=== PATIENT | male | born 1965 | race Caucasian/White ===

== ENCOUNTER 2017-11-10 12:19 | Day surgery (SDC) | payer OTHER ==
[~2017-11-10 12:19] MED LIST: Lactated Ringers 1,000 ML IV SCH; Midazolam 1 MG/ML 2 ML SDV ONE; Propofol 200 MG/20 ML SDV ONE; fentaNYL 100 MCG/2 ML SDV ONE
--- NOTE | 2017-11-10 12:40 | PCM.PREANE ---
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) Gastrointestinal: No Symptoms Neurological: No Symptoms Other: Reports: None, Easy Bleeding (On blood thinners) - Physical Assessment Height: 1.78 m Weight: 97.976 kg ASA Class: 2 Mental Status: Alert & Oriented x3 Airway Class: Mallampati = 3 Dentition: Reports: Normal Dentition Lungs: Clear to Auscultation Cardiovascular: Regular Rate - Allergies Allergies/Adverse Reactions: Allergies Allergy/AdvReac Type Severity Reaction Status Date / Time No Known Allergies Allergy Verified 11/06/17 08:44 - Acknowledgements Anesthesia Type Planned: MAC Pt an Appropriate Candidate for the Planned Anesthesia: Yes Alternatives and Risks of Anesthesia Discussed w Pt/Guardian: Yes Pt/Guardian Understands and Agrees with Anesthesia Plan: Yes PreAnesthesia Questionnaire HEENT History: Reports: Other (See Below) Other HEENT History: wears glasses, TMJ Cardiovascular History: Reports: Blood Clots/VTE/DVT, Other (See Below) Other Cardiovascular History: venal stent placement in left leg Genitourinary History: Reports: None Musculoskeletal History: Reports: Gout Endocrine/Metabolic History: Reports: Obesity/BMI 30+ Hematologic History: Reports: Bleeding Disorder, Other (See Below) Other Hematologic History: Factor V - Past Surgical History Head Surgeries/Procedures: Reports: None GI Surgical History: Reports: Hernia, Inguinal Other GI Surgeries/Procedures: hx inguinal hernia repair Musculoskeletal Surgical History: Reports: Shoulder Surgery Other Musculoskeletal Surgeries/Procedures:: hx rotator cuff repair Dermatological Surgical History: Reports: Other (See Below) - SUBSTANCE USE Smoking Status *Q: Never Smoker Recreational Drug Use History: No - HOME MEDS Home Medications: Home Meds Allopurinol [Zyloprim] 300 mg PO DAILY 11/06/17 [History] Aspirin [[place] Aspirin] 81 mg PO DAILY 11/06/17 [History] Enoxaparin [Lovenox] 1 injection SUBCUT ASDIRECTED 11/06/17 [History] Warfarin Sodium 5 mg PO DAILY 11/06/17 [History] - CURRENT (IN HOUSE) MEDS Current Meds: Current Medications Lactated Ringer's (Ringers, Lactated) 1,000 mls @ 125 mls/hr IV ASDIRECTED FER Discontinued Medications Fentanyl (Sublimaze) Confirm Administered Dose 100 mcg .ROUTE .STK-MED ONE Stop: 11/10/17 08:27 Lidocaine HCl (Xylocaine-Mpf 1%) Confirm Administered Dose 5 ml .ROUTE .STK-MED ONE Stop: 11/10/17 08:28 Midazolam HCl (Versed 1 Mg/Ml) Confirm Administered Dose 2 mg .ROUTE .STK-MED ONE Stop: 11/10/17 08:27 Propofol (Diprivan 20 Ml) Confirm Administered Dose 200 mg .ROUTE .STK-MED ONE Stop: 11/10/17 08:27
[2017-11-10] MEDS ORDERED: Ondansetron 4 MG/2 ML SDV ONE (13:03)
[2017-11-10] MEDS ORDERED: Dexamethasone 4 MG/ML 5 ML MDV ONE (13:03)
[2017-11-10] MEDS ORDERED: Propofol 200 MG/20 ML SDV ONE (13:05)
[2017-11-10] MEDS ORDERED: Lactated Ringers 1,000 ML IV SCH (13:30)
--- NOTE | 2017-11-10 13:30 | PCM.OPNOTE ---
- General Post-Op/Procedure Note Date of Surgery/Procedure: 11/10/17 Operative Procedure(s): Colonoscopy with cecal biopsy Pre Op Diagnosis: Intermittent rectal bleeding. Desire for colorectal cancer screening. Post-Op Diagnosis: Nonspecific cecal colitis Anesthesia Technique: MAC (ASA II) Primary Surgeon: Toni Johnson Condition: Good Free Text/Narrative:: Dictation [id number] CPT CODE 52067
--- NOTE | 2017-11-11 18:19 | OR ---
SURGEON: Toni Johnson M.D. DATE OF PROCEDURE: 11/10/2017 OPERATION PERFORMED: Colonoscopy with cecal biopsy. ANESTHESIA: MAC. ASA CLASSIFICATION: II. PREOPERATIVE DIAGNOSES: 1. Intermittent rectal bleeding. 2. Desire for colorectal cancer screening. POSTOPERATIVE DIAGNOSIS: Nonspecific colitis. DESCRIPTION OF PROCEDURE: The patient was taken to the endoscopy room and positioned on the endoscopy table in the left lateral decubitus position. Time-out was called for appropriate identification of the patient and procedure. Monitored anesthesia care was provided. The colonoscope was inserted into the rectum and advanced with minimal difficulty to the cecum. The cecum does show some nonspecific inflammatory changes. Biopsies of the cecum were obtained. Cecum was identified by internal landmarks and external pressure and presence of the ileocecal valve. The colonoscope was retroflexed in the cecum to visualize the ascending colon from below and then straightened and slowly withdrawn. The ascending colon, hepatic flexure, transverse colon, splenic flexure, descending colon, sigmoid colon, and rectum were very well visualized. No tumors, polyps, diverticula, or angiodysplastic changes were noted anywhere throughout the colon. There was no evidence of inflammatory bowel disease. Once the colonoscope was withdrawn to the rectum, it was retroflexed to visualize the anal orifice from above. Again no tumors or polyps were seen, and there were no acute hemorrhoidal changes. The colonoscope was then straightened, the rectum aspirated, and the colonoscope removed. The patient tolerated the procedure well and was taken to recovery room in stable condition. JAIME / SHIVA /[id number]
== END 2017-11-10 14:25 | disposition home or self-care (01) ==
LOC: MW.SDS 12:19
PROVIDERS: ATTEND Surgery
DX: K52.9 Noninfective gastroenteritis and colitis, unspecified (principal); M10.9 Gout, unspecified; D68.2 Hereditary deficiency of other clotting factors; E66.9 Obesity, unspecified; Z68.31 Body mass index [BMI] 31.0-31.9, adult; Z79.899 Other long term (current) drug therapy; Z79.82 Long term (current) use of aspirin; Z79.01 Long term (current) use of anticoagulants; Z86.718 Personal history of other venous thrombosis and embolism
CPT/HCPCS: 45380; 88305; J1100; J2250; J2405; J3010; J7120; 00810; J2704

== ENCOUNTER 2020-09-11 11:56 | Inpatient (IN) | payer BC, OTHER ==
[2020-09-11] MEDS ORDERED: Sodium Chloride 0.9% 1,000 ML IV ONE (12:26)
--- NOTE | 2020-09-11 12:28 | EDM.PDOC ---
ED HPI GENERAL MEDICAL PROBLEM - General Chief Complaint: Respiratory Problem Stated Complaint: SHORTNESS OF BREATHE Time Seen by Provider: 09/11/20 12:15 Source of Information: Reports: Patient History Limitations: Reports: No Limitations - History of Present Illness INITIAL COMMENTS - FREE TEXT/NARRATIVE: HISTORY AND PHYSICAL: History of present illness: Patient is a 55-year-old male who presents to the emergency room from the respiratory clinic with hypoxia. Patient was diagnosed with COVID-19 on 09/07/2020 due to shortness of breath, decreased appetite, fatigue and cough. He states he actually was feeling somewhat better with his shortness of breath but did have increased fatigue. Upon being reevaluated at the respiratory clinic it was noted that his oxygen saturation was 82% on room air. He is currently on 3 L per nasal cannula and satting at 92%. Patient denies any fever, chills, headache, change in vision, syncope or near syncope. Denies any chest pain, back pain, abdominal pain, nausea, vomiting, diarrhea, constipation or dysuria. Has not noted any blood in urine or stool. He has had decreased oral intake, concerned he may be dehydrated. He does have a history of factor V and previous blood clots, has been on 5mg Coumadin for 17+ years. Review of systems: As per history of present illness and below otherwise all systems reviewed and negative. Past medical history: As per history of present illness and as reviewed below otherwise noncontributory. Surgical history: As per history of present illness and as reviewed below otherwise nonco ntributory. Social history: See social history for further information Family history: As per history of present illness and as reviewed below otherwise noncontributory. Physical exam: General: Well developed and well nourished. Alert and orientated x 3. Nontoxic in appearance and in no acute distress. Vital signs are stable and have been reviewed by me. Nursing notes were reviewed. HEENT: Atraumatic, normocephalic, pupils equal and reactive bilaterally, negative for conjunctival pallor or scleral icterus, mucous membranes dry/tachy, TMs normal bilaterally, throat clear, neck supple, nontender, trachea midline. No drooling or trismus noted. No meningeal signs. No hot potato voice noted. Lungs: Diminished to auscultation, breath sounds equal bilaterally, chest nontender. Normal work of breathing, no accessory muscles used. Heart: S1S2, regular rate and rhythm without overt murmur Abdomen: Soft, nondistended, nontender. Negative for masses or hepatosplenomegaly. Negative for costovertebral tenderness. Skin: Intact, warm, dry. No lesions or rashes noted. Hematologic: No petechiae or purpra. Mucosa appropriate color and normal nail bed color and refill. Extremities: Atraumatic, moves all extremities per self without difficulty or deficits, negative for cords or calf pain. Neurovascular unremarkable. Neuro: Awake, alert, oriented. Cranial nerves II through XII unremarkable. C erebellum unremarkable. Motor and sensory unremarkable throughout. Exam nonfocal. Psychiatric: Mood and affect are appropriate. Normal thought process. Answering questions appropriately. Notes: Regardless of patient being on Coumadin his D-dimer is elevated, a CT chest has been ordered to rule out PE. I have spoken with the patient/caregiver and discussed today's findings, in addition to providing specific details for plan of care. As patient has required oxygen therapy, I feel he needs admission for further care and management. I did consult Dr. Molina/[facility]: CBC, CMP, Troponin, EKG, CXR, Therapeutics: IV fluids, Dexamethasone Impression: COVID-19 Plan: Inpatient admission Definitive disposition and diagnosis as appropriate pending reevaluation and review of above. - Related Data Allergies Allergy/AdvReac Type Severity Reaction Status Date / Time No Known Allergies Allergy Verified 09/11/20 12:16 Home Meds: Home Meds Allopurinol [Zyloprim] 300 mg PO DAILY 11/06/17 [History] Aspirin [Will Aspirin EC] 81 mg PO DAILY 11/06/17 [History] Enoxaparin [Lovenox] 1 injection SUBCUT ASDIRECTED 11/06/17 [History] Warfarin Sodium 5 mg PO DAILY 11/06/17 [History] Past Medical History HEENT History: Reports: Other (See Below) Other HEENT History: wears glasses, TMJ Cardiovascular History: Reports: Blood Clots/VTE/DVT, Other (See Below) Other Cardiovascular History: venal stent placement in left leg Genitourinary History: Reports: None Musculoskeletal History: Reports: Gout Endocrine/Metabolic History: Reports: Obesity/BMI 30+ Hematologic History: Reports: Bleeding Disorder, Other (See Below) Other Hematologic History: Factor V - Past Surgical History Head Surgeries/Procedures: Reports: None GI Surgical History: Reports: Hernia, Inguinal Other GI Surgeries/Procedures: hx inguinal hernia repair Musculoskeletal Surgical History: Reports: Shoulder Surgery Other Musculoskeletal Surgeries/Procedures:: hx rotator cuff repair Dermatological Surgical History: Reports: Other (See Below) Social & Family History - Tobacco Use Tobacco Use Status *Q: Never Tobacco User - Recreational Drug Use Recreational Drug Use: No ED ROS GENERAL - Review of Systems Review Of Systems: Comprehensive ROS is negative, except as noted in HPI. ED EXAM, GENERAL - Physical Exam Exam: See Below (See dictation) Course - Vital Signs Last Recorded V/S: Last Vital Signs Temp 97.1 F 09/11/20 12:13 Pulse 83 09/11/20 12:13 Resp 16 09/11/20 12:13 BP 128/66 09/11/20 12:13 Pulse Ox 85 L 09/11/20 12:13 - Orders/Labs/Meds Orders: Active Orders 24 hr Category Date Time Status Admission Status [Patient Status] [ADT] Stat ADT 09/11/20 14:13 Ordered Antiembolic Devices [RC] PER UNIT ROUTINE Care 09/11/20 15:12 Active EKG Documentation Completion [RC] STAT Care 09/11/20 12:16 Active Oxygen Therapy Adult [Oxygen Therapy] [RC] ASDIRECTED Care 09/11/20 12:16 Active Oxygen Therapy [RC] PRN Care 09/11/20 15:09 Active Up ad Naila [RC] ASDIRECTED Care 09/11/20 15:09 Active VTE/DVT Education [RC] PER UNIT ROUTINE Care 09/11/20 15:09 Active Vital Signs [RC] Q4H Care 09/11/20 15:09 Active Regular Diet [DIET] Diet 09/11/20 Breakfast Active CBC WITH AUTO DIFF [HEME] AM Lab 09/12/20 05:11 Ordered COMPREHENSIVE METABOLIC PN,CMP [CHEM] AM Lab 09/12/20 05:11 Ordered Acetaminophen [TylenoL] Med 09/11/20 15:09 Ordered 650 mg PO Q4H PRN Ondansetron [Zofran ODT] Med 09/11/20 15:09 Ordered 4 mg PO Q4H PRN Ondansetron [Zofran] Med 09/11/20 15:09 Ordered 4 mg IVPUSH Q4H PRN Sodium Chloride 0.9% [Saline Flush] Med 09/11/20 12:16 Active 10 ml FLUSH ASDIRECTED PRN Sodium Chloride 0.9% [Saline Flush] Med 09/11/20 12:16 Active 2.5 ml FLUSH ASDIRECTED PRN Saline Lock Insert [OM.PC] Stat Oth 09/11/20 12:16 Ordered Sequential Compression Device [OM.PC] Per Unit Routine Oth 09/11/20 15:10 Ordered Resuscitation Status Routine Resus Stat 09/11/20 15:09 Ordered Medication Orders Acetaminophen (Tylenol) 650 mg PO Q4H PRN PRN Reason: Pain (Mild 1-3)/fever Ondansetron HCl (Zofran Odt) 4 mg PO Q4H PRN PRN Reason: nausea, able to take PO Ondansetron HCl (Zofran) 4 mg IVPUSH Q4H PRN PRN Reason: Nausea Sodium Chloride (Saline Flush) 10 ml FLUSH ASDIRECTED PRN PRN Reason: Keep Vein Open Sodium Chloride (Saline Flush) 2.5 ml FLUSH ASDIRECTED PRN PRN Reason: Keep Vein Open Labs: Laboratory Tests 09/11/20 09/11/20 09/11/20 Range/Units 13:08 13:08 13:08 WBC 5.74 (4.0-11.0) K/uL RBC 5.53 (4.50-5.90) M/uL Hgb 18.2 H (13.0-17.0) g/dL Hct 52.3 H (38.0-50.0) % MCV 94.6 (80.0-98.0) fL MCH 32.9 H (27.0-32.0) pg MCHC 34.8 (31.0-37.0) g/dL RDW Std Deviation 44.5 (28.0-62.0) fl RDW Coeff of Aristeo 13 (11.0-15.0) % Plt Count 100 L (150-400) K/uL MPV 11.10 (7.40-12.00) fL Neut % (Auto) 78.8 (48.0-80.0) % Lymph % (Auto) 11.8 L (16.0-40.0) % [place] % (Auto) 9.2 (0.0-15.0) % Eos % (Auto) 0.0 (0.0-7.0) % Baso % (Auto) 0.2 (0.0-1.5) % Neut # (Auto) 4.5 (1.4-5.7) K/uL Lymph # (Auto) 0.7 (0.6-2.4) K/uL [place] # (Auto) 0.5 (0.0-0.8) K/uL Eos # (Auto) 0.0 (0.0-0.7) K/uL Baso # (Auto) 0.0 (0.0-0.1) K/uL Nucleated RBC % 0.0 /100WBC Nucleated RBCs # 0 K/uL INR D-Dimer, Quantitative 1.60 H (0.0-0.50) mg/L FEU VBG pH (7.31-7.41) VBG pCO2 (35-45) mmHG VBG pO2 (30-40) mmHG VBG HCO3 (22-30) mEq/L VBG Total CO2 (41-51) mmol/L VBG Base Excess (-3.0-3.0) Lactate (0.20-2.00) mmol/L Sodium 133 L (136-148) mmol/L Potassium 4.1 (3.5-5.1) mmol/L Chloride 98 (98-107) mmol/L Carbon Dioxide 24.1 (21.0-32.0) mmol/L BUN 22 H (7.0-18.0) mg/dL Creatinine 1.1 (0.8-1.3) mg/dL Est Cr Clr Drug Dosing 70.11 mL/min Estimated GFR (MDRD) > 60.0 ml/min Glucose 103 (74-106) mg/dL Calcium 8.6 (8.5-10.1) mg/dL Total Bilirubin 0.7 (0.2-1.0) mg/dL AST 51 H (15-37) IU/L ALT 50 (14-63) IU/L Alkaline Phosphatase 66 (46-116) U/L Troponin I < 0.050 (0.000-0.056) ng/mL Total Protein 7.7 (6.4-8.2) g/dL Albumin 3.2 L (3.4-5.0) g/dL Globulin 4.5 H (2.6-4.0) g/dL Albumin/Globulin Ratio 0.7 L (0.9-1.6) SARS-CoV-2 RNA (ANDREW) (NEGATIVE) 09/11/20 09/11/20 09/11/20 Range/Units 13:08 13:08 13:08 WBC (4.0-11.0) K/uL RBC (4.50-5.90) M/uL Hgb (13.0-17.0) g/dL Hct (38.0-50.0) % MCV (80.0-98.0) fL MCH (27.0-32.0) pg MCHC (31.0-37.0) g/dL RDW Std Deviation (28.0-62.0) fl RDW Coeff of Aristeo (11.0-15.0) % Plt Count (150-400) K/uL MPV (7.40-12.00) fL Neut % (Auto) (48.0-80.0) % Lymph % (Auto) (16.0-40.0) % [place] % (Auto) (0.0-15.0) % Eos % (Auto) (0.0-7.0) % Baso % (Auto) (0.0-1.5) % Neut # (Auto) (1.4-5.7) K/uL Lymph # (Auto) (0.6-2.4) K/uL [place] # (Auto) (0.0-0.8) K/uL Eos # (Auto) (0.0-0.7) K/uL Baso # (Auto) (0.0-0.1) K/uL Nucleated RBC % /100WBC Nucleated RBCs # K/uL INR 2.11 D-Dimer, Quantitative (0.0-0.50) mg/L FEU VBG pH 7.45 H (7.31-7.41) VBG pCO2 36 (35-45) mmHG VBG pO2 44 H (30-40) mmHG VBG HCO3 25 (22-30) mEq/L VBG Total CO2 21 L (41-51) mmol/L VBG Base Excess 0.9 (-3.0-3.0) Lactate 1.3 (0.20-2.00) mmol/L Sodium (136-148) mmol/L Potassium (3.5-5.1) mmol/L Chloride (98-107) mmol/L Carbon Dioxide (21.0-32.0) mmol/L BUN (7.0-18.0) mg/dL Creatinine (0.8-1.3) mg/dL Est Cr Clr Drug Dosing mL/min Estimated GFR (MDRD) ml/min Glucose (74-106) mg/dL Calcium (8.5-10.1) mg/dL Total Bilirubin (0.2-1.0) mg/dL AST (15-37) IU/L ALT (14-63) IU/L Alkaline Phosphatase (46-116) U/L Troponin I (0.000-0.056) ng/mL Total Protein (6.4-8.2) g/dL Albumin (3.4-5.0) g/dL Globulin (2.6-4.0) g/dL Albumin/Globulin Ratio (0.9-1.6) SARS-CoV-2 RNA (ANDREW) (NEGATIVE) 09/11/20 Range/Units 13:08 WBC (4.0-11.0) K/uL RBC (4.50-5.90) M/uL Hgb (13.0-17.0) g/dL Hct (38.0-50.0) % MCV (80.0-98.0) fL MCH (27.0-32.0) pg MCHC (31.0-37.0) g/dL RDW Std Deviation (28.0-62.0) fl RDW Coeff of Aristeo (11.0-15.0) % Plt Count (150-400) K/uL MPV (7.40-12.00) fL Neut % (Auto) (48.0-80.0) % Lymph % (Auto) (16.0-40.0) % [place] % (Auto) (0.0-15.0) % Eos % (Auto) (0.0-7.0) % Baso % (Auto) (0.0-1.5) % Neut # (Auto) (1.4-5.7) K/uL Lymph # (Auto) (0.6-2.4) K/uL [place] # (Auto) (0.0-0.8) K/uL Eos # (Auto) (0.0-0.7) K/uL Baso # (Auto) (0.0-0.1) K/uL Nucleated RBC % /100WBC Nucleated RBCs # K/uL INR D-Dimer, Quantitative (0.0-0.50) mg/L FEU VBG pH (7.31-7.41) VBG pCO2 (35-45) mmHG VBG pO2 (30-40) mmHG VBG HCO3 (22-30) mEq/L VBG Total CO2 (41-51) mmol/L VBG Base Excess (-3.0-3.0) Lactate (0.20-2.00) mmol/L Sodium (136-148) mmol/L Potassium (3.5-5.1) mmol/L Chloride (98-107) mmol/L Carbon Dioxide (21.0-32.0) mmol/L BUN (7.0-18.0) mg/dL Creatinine (0.8-1.3) mg/dL Est Cr Clr Drug Dosing mL/min Estimated GFR (MDRD) ml/min Glucose (74-106) mg/dL Calcium (8.5-10.1) mg/dL Total Bilirubin (0.2-1.0) mg/dL AST (15-37) IU/L ALT (14-63) IU/L Alkaline Phosphatase (46-116) U/L Troponin I (0.000-0.056) ng/mL Total Protein (6.4-8.2) g/dL Albumin (3.4-5.0) g/dL Globulin (2.6-4.0) g/dL Albumin/Globulin Ratio (0.9-1.6) SARS-CoV-2 RNA (ANDREW) POSITIVE H (NEGATIVE) Meds: Medications Generic Name Dose Route Start Last Admin Trade Name Freq PRN Reason Stop Dose Admin Acetaminophen 650 mg 09/11/20 15:09 Tylenol PO Q4H PRN Pain (Mild 1-3)/fever Ondansetron HCl 4 mg 09/11/20 15:09 Zofran Odt PO Q4H PRN nausea, able to take PO Ondansetron HCl 4 mg 09/11/20 15:09 Zofran IVPUSH Q4H PRN Nausea Sodium Chloride 10 ml 09/11/20 12:16 Saline Flush FLUSH ASDIRECTED PRN Keep Vein Open Sodium Chloride 2.5 ml 09/11/20 12:16 Saline Flush FLUSH ASDIRECTED PRN Keep Vein Open Discontinued Medications Generic Name Dose Route Start Last Admin Trade Name Freq PRN Reason Stop Dose Admin Dexamethasone 6 mg 09/11/20 12:37 09/11/20 13:53 Dexamethasone PO 09/11/20 12:38 6 mg ONETIME ONE Administration Sodium Chloride 1,000 mls @ 999 mls/hr 09/11/20 12:26 09/11/20 13:14 Normal Saline IV 09/11/20 13:26 999 mls/hr STAT ONE Administration Iopamidol 75 ml 09/11/20 14:47 09/11/20 14:48 Isovue Multipack-370 (76%) IVPUSH 09/11/20 14:48 75 ml ONETIME STA Administration Departure - Departure Time of Disposition: 15:24 Disposition: Admitted As Inpatient 65 Clinical Impression: COVID-19 - Discharge Information Referrals: Marco House MD [Ordering Only Provider] - Critical Care Note - Critical Care Note Total Time (mins): 31 Comments: Critical care time is exclusive of billable procedures and the time to perform these procedures. Critical care time was used to prevent vital system organ failure and deterioration. Critical care time includes bedside management and high-complexity decision making requiring my highest level of mental preparedness and attention. This includes reviewing the patient's chart and prior medical records, ordering and reviewing interpreting laboratory studies and imaging results, interpretation of vital signs and EKG, pulse oximetry, and discussion with the admitting team along with EMS and nursing staff. 31 minutes for applying oxygen, monitoring vital signs frequently, dexamethasone administration. Sepsis Event Note (ED) - Evaluation Sepsis Screening Result: No Definite Risk - Focused Exam Vital Signs: Vital Signs Temp Pulse Resp BP Pulse Ox 09/11/20 12:13 97.1 F 83 16 128/66 85 L - My Orders Last 24 Hours: My Active Orders 09/11/20 12:16 EKG Documentation Completion [RC] STAT Oxygen Therapy Adult [Oxygen Therapy] [RC] ASDIRECTED Sodium Chloride 0.9% [Saline Flush] 10 ml FLUSH ASDIRECTED PRN Sodium Chloride 0.9% [Saline Flush] 2.5 ml FLUSH ASDIRECTED PRN Saline Lock Insert [OM.PC] Stat 09/11/20 14:13 Admission Status [Patient Status] [ADT] Stat - Assessment/Plan Last 24 Hours: My Active Orders 09/11/20 12:16 EKG Documentation Completion [RC] STAT Oxygen Therapy Adult [Oxygen Therapy] [RC] ASDIRECTED Sodium Chloride 0.9% [Saline Flush] 10 ml FLUSH ASDIRECTED PRN Sodium Chloride 0.9% [Saline Flush] 2.5 ml FLUSH ASDIRECTED PRN Saline Lock Insert [OM.PC] Stat 09/11/20 14:13 Admission Status [Patient Status] [ADT] Stat
[2020-09-11] MEDS ORDERED: Dexamethasone 4 MG Tab PO ONE (12:37)
--- NOTE | 2020-09-11 12:52 | CR ---
INDICATION: Hypoxia. COVID-19 positive. COMPARISON: None TECHNIQUE: Single-view chest radiograph obtained is an AP upright portable study. FINDINGS: TUBES AND LINES: None. HEART AND MEDIASTINUM: The heart size is normal. The mediastinal contour appears normal for patient age. LUNGS AND PLEURAL SPACES: Lung volumes are low. There is moderate diffuse multifocal airspace disease.No visible pleural effusion or pneumothorax. OSSEOUS STRUCTURES: Age-appropriate appearance. No acute focal finding. IMPRESSION: Moderate diffuse multifocal airspace disease. No visible pleural effusion or pneumothorax. While nonspecific, the findings are compatible with COVID related lung disease. Dictated by Joseph Ferrari MD @ Sep 11 2020 12:50PM Signed by Dr. Joseph Ferrari @ Sep 11 2020 12:51PM
[2020-09-11 13:55] LABS: BLOOD UREA NITROGEN,BUN 22 mg/dL (7.0-18.0); CARBON DIOXIDE,CO2 24.1 mmol/L (21.0-32.0); CHLORIDE,CL 98 mmol/L (98-107); GLUCOSE RANDOM 103 mg/dL (74-106); POTASSIUM,K 4.1 mmol/L (3.5-5.1); SODIUM,NA 133 mmol/L (136-148)
[2020-09-11] MEDS ORDERED: Iopamidol 755 MG/ML 500 ML Multipack Bottle IVPUSH STA (14:47)
[2020-09-11] MEDS ORDERED: Ondansetron 4 MG Tab.DIS PO PRN (15:09)
[2020-09-11] MEDS ORDERED: Ondansetron 4 MG/2 ML SDV IVPUSH PRN (15:09)
--- NOTE | 2020-09-11 15:16 | CT ---
INDICATION: Shortness of breath, elevated D-dimer, positive COVID. COMPARISON: Chest radiograph 09/11/2020. TECHNIQUE: CT of the chest with 75 cc of Isovue 370 IV contrast. Coronal and sagittal reconstructions. 3D post processing was performed. FINDINGS: Heart size upper limits of normal. Normal caliber thoracic aorta and central pulmonary arteries. Mild coronary artery calcifications. Negative for acute pulmonary embolism. No pericardial effusion. No thoracic lymphadenopathy. There are relatively symmetric peripheral and basilar predominant patchy consolidations and ground-glass opacities bilaterally which are likely infectious or inflammatory (series 402 image 56). No pleural effusion or pneumothorax. 8 mm noncalcified pulmonary nodule along the right major fissure (image 51). 3 mm nodule along the right major fissure (image 45). 5 mm noncalcified pleural-based pulmonary nodule in the anterior right middle lobe (image 58). No central endobronchial lesion. Marked bronchial wall thickening in the lower lungs. The thyroid gland is normal in appearance. Small hiatal hernia. Diffuse hepatic steatosis. The remainder of the visualized upper abdomen is unremarkable. The bones are unremarkable. IMPRESSION: 1. Negative for acute pulmonary embolism. 2. There are peripheral and basilar predominant patchy consolidations and ground-glass opacities which are likely infectious or inflammatory and can be seen in the setting of COVID pneumonia. 3. Few noncalcified pulmonary nodules in the right lung measuring up to 8 mm. Please see follow-up guidelines below. 4. Diffuse hepatic steatosis. [employer] GUIDELINES - SOLID NODULES: MULTIPLE LOW RISK - nodule less than 6 mm: No routine follow-up. - nodule 6-8 mm: CT at 3-6 months, then consider CT at 18-24 months. - nodule greater than 8 mm: CT at 3-6 months, then consider CT at 18-24 months. MULTIPLE HIGH RISK - nodule less than 6 mm: Optional CT at 12 months. - nodule 6-8 mm: CT at 3-6 months, then at 18-24 months. - nodule greater than 8 mm: CT at 3-6 months, then at 18-24 months. Please note that all CT scans at this facility use dose modulation, iterative reconstruction, and/or weight-based dosing when appropriate to reduce radiation dose to as low as reasonably achievable. Dictated by Amie Chance MD @ Sep 11 2020 3:00PM Signed by Dr. Amie Chance @ Sep 11 2020 3:14PM
--- NOTE | 2020-09-11 15:20 | PCM.SN.2 ---
- Free Text/Narrative Note: 12 lead EKG interpretation Obtained: September 11, 2020 at 1502 Rhythm: Sinus Rate: 80 [place]: Normal Intervals: Normal ST/T Segments: No acute ischemic changes Interpretation: Sinus Rhythm
--- NOTE | 2020-09-11 15:59 | PCM.HP.2 ---
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 And takes Allopurinol for long standing Gout. He was sent directly from respiratory clinic for hypoxia; O2 sat 82% on r.a secondary to COVID 19. He was previously tested and found to be COVID 19 positive on 09/07/2020. States that since 1 x week he has been experiencing worsening s.o.b, decreased appetite, fatigue, cough. Was feeling mildly improved from a respiratory stand point but had worsening of his fatigue. Also, states he has not been eating or drinking very much in the last week as he has nausea worsened by fried or fatty foods. But denies any change in his sense of taste or smell. 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 States he has never felt like this before, symptoms are alleviated by sitting up and sitting still. Worsened by activity. Has not tried taking anything for it. Denies any associated fever, chills, weight loss, or abdominal pain. Onset of Symptoms: Reports: Gradual Context: Reports: Sick Contact (coworker). Denies: Travel Associated Symptoms: Reports: Cough, Loss of Appetite, Nausea/Vomiting, Shortness of Breath, Weakness. Denies: Chest Pain, Diaphoresis, Fever/Chills, Headaches, Rash, Syncope - Related Data Allergies/Adverse Reactions: Allergies Allergy/AdvReac Type Severity Reaction Status Date / Time No Known Allergies Allergy Verified 09/11/20 15:33 Home Medications: Home Meds Allopurinol [Zyloprim] 300 mg PO DAILY 11/06/17 [History] Aspirin [Cushing Aspirin EC] 81 mg PO DAILY 11/06/17 [History] Warfarin Sodium 5 mg PO DAILY 11/06/17 [History] Past Medical History HEENT History: Reports: Other (See Below) Other HEENT History: wears glasses, TMJ Cardiovascular History: Reports: Blood Clots/VTE/DVT, Other (See Below) Other Cardiovascular History: venal stent placement in left leg Genitourinary History: Reports: None Musculoskeletal History: Reports: Gout Endocrine/Metabolic History: Reports: Obesity/BMI 30+ Hematologic History: Reports: Bleeding Disorder, Other (See Below) Other Hematologic History: Factor V - Past Surgical History Head Surgeries/Procedures: Reports: None GI Surgical History: Reports: Hernia, Inguinal Other GI Surgeries/Procedures: hx inguinal hernia repair Musculoskeletal Surgical History: Reports: Shoulder Surgery Other Musculoskeletal Surgeries/Procedures:: hx rotator cuff repair Dermatological Surgical History: Reports: Other (See Below) Social & Family History - Tobacco Use Tobacco Use Status *Q: Never Tobacco User - Recreational Drug Use Recreational Drug Use: No H&P Review of Systems - Review of Systems: Review Of Systems: Comprehensive ROS is negative, except as noted in HPI. General: Reports: Fatigue, Decreased Appetite HEENT: Reports: No Symptoms, Sore Throat Pulmonary: Reports: Shortness of Breath. Denies: Wheezing, Pleuritic Chest Pain Cardiovascular: Reports: Dyspnea on Exertion. Denies: Chest Pain Gastrointestinal: Reports: Anorexia Musculoskeletal: Reports: No Symptoms Skin: Reports: No Symptoms Psychiatric: Reports: No Symptoms Neurological: Reports: No Symptoms Hematologic/Lymphatic: Reports: No Symptoms Immunologic: Reports: No Symptoms Exam - Exam Exam: See Below - Vital Signs Vital Signs: Last Vital Signs Temp 97.7 F 09/11/20 15:30 Pulse 90 09/11/20 15:30 Resp 20 09/11/20 15:30 BP 141/91 H 09/11/20 15:30 Pulse Ox 92 L 09/11/20 15:30 Weight: 94.03 kg - Exam Quality Assessment: Supplemental Oxygen General: Alert, Oriented, Cooperative, Moderate Distress HEENT: EOMI, Mucosa Moist & [place], Nares Patent, Normal Nasal Septum, Pupils Equal, Pupils Reactive, PERRLA Neck: Supple, Trachea Midline, Full Range of Motion. No: Lymphadenopathy, JVD Lungs: Normal Respiratory Effort, Decreased Breath Sounds, Rhonchi Cardiovascular: Regular Rate, Regular Rhythm, Normal S1, Normal S2 GI/Abdominal Exam: Normal Bowel Sounds, Soft, Non-Tender Back Exam: Normal Inspection, Full Range of Motion Extremities: Normal Inspection, Normal Range of Motion, Normal Capillary Refill Skin: Warm, Dry, Intact Neurological: Cranial Nerves Intact, Reflexes Equal Bilateral, Strength Equal Bilateral Neuro Extensive - Mental Status: Alert, Oriented x3, Normal Mood/Affect, Normal Cognition, Memory Intact Neuro Extensive - Motor, Sensory, Reflexes: CN II-XII Intact Psychiatric: Alert, Normal Affect, Normal Mood - Patient Data Lab Results Last 24 hrs: Laboratory Results - last 24 hr 09/11/20 09/11/20 09/11/20 Range/Units 13:08 13:08 13:08 WBC 5.74 (4.0-11.0) K/uL RBC 5.53 (4.50-5.90) M/uL Hgb 18.2 H (13.0-17.0) g/dL Hct 52.3 H (38.0-50.0) % MCV 94.6 (80.0-98.0) fL MCH 32.9 H (27.0-32.0) pg MCHC 34.8 (31.0-37.0) g/dL RDW Std Deviation 44.5 (28.0-62.0) fl RDW Coeff of Aristeo 13 (11.0-15.0) % Plt Count 100 L (150-400) K/uL MPV 11.10 (7.40-12.00) fL Neut % (Auto) 78.8 (48.0-80.0) % Lymph % (Auto) 11.8 L (16.0-40.0) % [place] % (Auto) 9.2 (0.0-15.0) % Eos % (Auto) 0.0 (0.0-7.0) % Baso % (Auto) 0.2 (0.0-1.5) % Neut # (Auto) 4.5 (1.4-5.7) K/uL Lymph # (Auto) 0.7 (0.6-2.4) K/uL [place] # (Auto) 0.5 (0.0-0.8) K/uL Eos # (Auto) 0.0 (0.0-0.7) K/uL Baso # (Auto) 0.0 (0.0-0.1) K/uL Nucleated RBC % 0.0 /100WBC Nucleated RBCs # 0 K/uL INR D-Dimer, Quantitative 1.60 H (0.0-0.50) mg/L FEU VBG pH (7.31-7.41) VBG pCO2 (35-45) mmHG VBG pO2 (30-40) mmHG VBG HCO3 (22-30) mEq/L VBG Total CO2 (41-51) mmol/L VBG Base Excess (-3.0-3.0) Lactate (0.20-2.00) mmol/L Sodium 133 L (136-148) mmol/L Potassium 4.1 (3.5-5.1) mmol/L Chloride 98 (98-107) mmol/L Carbon Dioxide 24.1 (21.0-32.0) mmol/L BUN 22 H (7.0-18.0) mg/dL Creatinine 1.1 (0.8-1.3) mg/dL Est Cr Clr Drug Dosing 70.11 mL/min Estimated GFR (MDRD) > 60.0 ml/min Glucose 103 (74-106) mg/dL Calcium 8.6 (8.5-10.1) mg/dL Total Bilirubin 0.7 (0.2-1.0) mg/dL AST 51 H (15-37) IU/L ALT 50 (14-63) IU/L Alkaline Phosphatase 66 (46-116) U/L Troponin I < 0.050 (0.000-0.056) ng/mL Total Protein 7.7 (6.4-8.2) g/dL Albumin 3.2 L (3.4-5.0) g/dL Globulin 4.5 H (2.6-4.0) g/dL Albumin/Globulin Ratio 0.7 L (0.9-1.6) SARS-CoV-2 RNA (ANDREW) (NEGATIVE) 09/11/20 09/11/20 09/11/20 Range/Units 13:08 13:08 13:08 WBC (4.0-11.0) K/uL RBC (4.50-5.90) M/uL Hgb (13.0-17.0) g/dL Hct (38.0-50.0) % MCV (80.0-98.0) fL MCH (27.0-32.0) pg MCHC (31.0-37.0) g/dL RDW Std Deviation (28.0-62.0) fl RDW Coeff of Aristeo (11.0-15.0) % Plt Count (150-400) K/uL MPV (7.40-12.00) fL Neut % (Auto) (48.0-80.0) % Lymph % (Auto) (16.0-40.0) % [place] % (Auto) (0.0-15.0) % Eos % (Auto) (0.0-7.0) % Baso % (Auto) (0.0-1.5) % Neut # (Auto) (1.4-5.7) K/uL Lymph # (Auto) (0.6-2.4) K/uL [place] # (Auto) (0.0-0.8) K/uL Eos # (Auto) (0.0-0.7) K/uL Baso # (Auto) (0.0-0.1) K/uL Nucleated RBC % /100WBC Nucleated RBCs # K/uL INR 2.11 D-Dimer, Quantitative (0.0-0.50) mg/L FEU VBG pH 7.45 H (7.31-7.41) VBG pCO2 36 (35-45) mmHG VBG pO2 44 H (30-40) mmHG VBG HCO3 25 (22-30) mEq/L VBG Total CO2 21 L (41-51) mmol/L VBG Base Excess 0.9 (-3.0-3.0) Lactate 1.3 (0.20-2.00) mmol/L Sodium (136-148) mmol/L Potassium (3.5-5.1) mmol/L Chloride (98-107) mmol/L Carbon Dioxide (21.0-32.0) mmol/L BUN (7.0-18.0) mg/dL Creatinine (0.8-1.3) mg/dL Est Cr Clr Drug Dosing mL/min Estimated GFR (MDRD) ml/min Glucose (74-106) mg/dL Calcium (8.5-10.1) mg/dL Total Bilirubin (0.2-1.0) mg/dL AST (15-37) IU/L ALT (14-63) IU/L Alkaline Phosphatase (46-116) U/L Troponin I (0.000-0.056) ng/mL Total Protein (6.4-8.2) g/dL Albumin (3.4-5.0) g/dL Globulin (2.6-4.0) g/dL Albumin/Globulin Ratio (0.9-1.6) SARS-CoV-2 RNA (ANDREW) (NEGATIVE) 09/11/20 Range/Units 13:08 WBC (4.0-11.0) K/uL RBC (4.50-5.90) M/uL Hgb (13.0-17.0) g/dL Hct (38.0-50.0) % MCV (80.0-98.0) fL MCH (27.0-32.0) pg MCHC (31.0-37.0) g/dL RDW Std Deviation (28.0-62.0) fl RDW Coeff of Aristeo (11.0-15.0) % Plt Count (150-400) K/uL MPV (7.40-12.00) fL Neut % (Auto) (48.0-80.0) % Lymph % (Auto) (16.0-40.0) % [place] % (Auto) (0.0-15.0) % Eos % (Auto) (0.0-7.0) % Baso % (Auto) (0.0-1.5) % Neut # (Auto) (1.4-5.7) K/uL Lymph # (Auto) (0.6-2.4) K/uL [place] # (Auto) (0.0-0.8) K/uL Eos # (Auto) (0.0-0.7) K/uL Baso # (Auto) (0.0-0.1) K/uL Nucleated RBC % /100WBC Nucleated RBCs # K/uL INR D-Dimer, Quantitative (0.0-0.50) mg/L FEU VBG pH (7.31-7.41) VBG pCO2 (35-45) mmHG VBG pO2 (30-40) mmHG VBG HCO3 (22-30) mEq/L VBG Total CO2 (41-51) mmol/L VBG Base Excess (-3.0-3.0) Lactate (0.20-2.00) mmol/L Sodium (136-148) mmol/L Potassium (3.5-5.1) mmol/L Chloride (98-107) mmol/L Carbon Dioxide (21.0-32.0) mmol/L BUN (7.0-18.0) mg/dL Creatinine (0.8-1.3) mg/dL Est Cr Clr Drug Dosing mL/min Estimated GFR (MDRD) ml/min Glucose (74-106) mg/dL Calcium (8.5-10.1) mg/dL Total Bilirubin (0.2-1.0) mg/dL AST (15-37) IU/L ALT (14-63) IU/L Alkaline Phosphatase (46-116) U/L Troponin I (0.000-0.056) ng/mL Total Protein (6.4-8.2) g/dL Albumin (3.4-5.0) g/dL Globulin (2.6-4.0) g/dL Albumin/Globulin Ratio (0.9-1.6) SARS-CoV-2 RNA (ANDREW) POSITIVE H (NEGATIVE) Result Diagrams: 09/11/20 13:08 09/11/20 13:08 Sepsis Event Note - Evaluation Sepsis Screening Result: No Definite Risk - Focused Exam Vital Signs: Vital Signs Temp Pulse Resp BP Pulse Ox 09/11/20 15:30 97.7 F 90 20 141/91 H 92 L 09/11/20 14:35 84 133/76 87 L 09/11/20 13:34 79 124/65 91 L 09/11/20 12:13 97.1 F 83 16 128/66 85 L - Problem List (1) Factor 5 Leiden mutation, heterozygous SNOMED Code(s): 621435821 ICD Code: D68.51 - ACTIVATED PROTEIN C RESISTANCE Status: Chronic (2) Pulmonary nodules/lesions, multiple SNOMED Code(s): 939639012 ICD Code: R91.8 - OTHER NONSPECIFIC ABNORMAL FINDING OF LUNG FIELD Status: Chronic (3) Gout SNOMED Code(s): 79720204 ICD Code: M10.9 - GOUT, UNSPECIFIED Status: Chronic (4) Hepatic steatosis SNOMED Code(s): 640233879 ICD Code: K76.0 - FATTY (CHANGE OF) LIVER, NOT ELSEWHERE CLASSIFIED Status: Acute Problem List Initiated/Reviewed/Updated: Yes Orders Last 24hrs: Active Orders 24 hr Category Date Time Status Admission Status [Patient Status] [ADT] Stat ADT 09/11/20 14:13 Active Antiembolic Devices [RC] PER UNIT ROUTINE Care 09/11/20 15:12 Active Communication Order [RC] ROUTINE Care 09/11/20 15:41 Ordered Incentive Spirometry [RT Incentive Spirometry] [RC] Care 09/11/20 15:42 Ordered ASDIRECTED Oxygen Therapy Adult [Oxygen Therapy] [RC] ASDIRECTED Care 09/11/20 12:16 Active Oxygen Therapy [RC] PRN Care 09/11/20 15:09 Active RT Post Treatment Assessment [RC] Click to Edit Care 09/11/20 15:35 Ordered RT Pre-Treatment Assessment [RC] Click to Edit Care 09/11/20 15:35 Ordered Up ad Naila [RC] ASDIRECTED Care 09/11/20 15:09 Active VTE/DVT Education [RC] PER UNIT ROUTINE Care 09/11/20 15:09 Active Vital Signs [RC] Q4H Care 09/11/20 15:09 Active Regular Diet [DIET] Diet 09/11/20 Breakfast Active CBC WITH AUTO DIFF [HEME] AM Lab 09/12/20 05:11 Ordered COMPREHENSIVE METABOLIC PN,CMP [CHEM] AM Lab 09/12/20 05:11 Ordered INR,PT,PROTHROMBIN TIME [COAG] DAILY Lab 09/12/20 05:11 Ordered INR,PT,PROTHROMBIN TIME [COAG] DAILY Lab 09/13/20 05:11 Ordered INR,PT,PROTHROMBIN TIME [COAG] DAILY Lab 09/14/20 05:11 Ordered INR,PT,PROTHROMBIN TIME [COAG] DAILY Lab 09/15/20 05:11 Ordered INR,PT,PROTHROMBIN TIME [COAG] DAILY Lab 09/16/20 05:11 Ordered Acetaminophen [TylenoL] Med 09/11/20 15:09 Ordered 650 mg PO Q4H PRN Albuterol/Ipratropium [Combivent Respimat] Med 09/11/20 15:45 Ordered See Dose Instructions INH Q4H Ondansetron [Zofran ODT] Med 09/11/20 15:09 Ordered 4 mg PO Q4H PRN Ondansetron [Zofran] Med 09/11/20 15:09 Ordered 4 mg IVPUSH Q4H PRN Sodium Chloride 0.9% [Saline Flush] Med 09/11/20 12:16 Active 10 ml FLUSH ASDIRECTED PRN Sodium Chloride 0.9% [Saline Flush] Med 09/11/20 12:16 Active 2.5 ml FLUSH ASDIRECTED PRN Warfarin Dosing [Coumadin Ask] Med 09/11/20 15:45 Once 1 each PO ONETIME ONE dexAMETHasone [Dexamethasone] Med 09/12/20 09:00 Ordered 6 mg IVPUSH DAILY Saline Lock Insert [OM.PC] Stat Oth 09/11/20 12:16 Ordered Sequential Compression Device [OM.PC] Per Unit Routine Oth 09/11/20 15:10 Ordered Resuscitation Status Routine Resus Stat 09/11/20 15:09 Ordered Medication Orders Acetaminophen (Tylenol) 650 mg PO Q4H PRN PRN Reason: Pain (Mild 1-3)/fever Albuterol/Ipratropium (Combivent Respimat) 0 gm INH Q4H FER Dexamethasone (Dexamethasone) 6 mg IVPUSH DAILY FER Ondansetron HCl (Zofran Odt) 4 mg PO Q4H PRN PRN Reason: nausea, able to take PO Ondansetron HCl (Zofran) 4 mg IVPUSH Q4H PRN PRN Reason: Nausea Sodium Chloride (Saline Flush) 10 ml FLUSH ASDIRECTED PRN PRN Reason: Keep Vein Open Sodium Chloride (Saline Flush) 2.5 ml FLUSH ASDIRECTED PRN PRN Reason: Keep Vein Open Warfarin Sodium (Coumadin Ask) 1 each PO ONETIME ONE Stop: 09/11/20 15:46 Assessment/Plan Comment:: Pt is a 55 y/o M with being treated for Acute hypoxic respiratory failure secondary to COVID 19. 1. For Covid19 continue on high flow o2 per requirments, if max dose, can try Bipap 10/5, FiO2 60%.Tylenol 650mg PRN, Maintain O2 sats above 92%, Dexamethasone IV 1 dose daily for 10 days, schedules Q4 Combivent to avoid aerosolization via nebulizer. Start Remdesivir 200mg IV loading dose per pt consent today, followed by 4 days of 100mg daily. Pt is above 5L O2 requirment, therefore discuss option if Covalescent plasma, per patient consent have ordewred for tommorwo. Goal is to start within first 3days. Encourage proning and incentive spirometry. 2. For Factore IV Laden Deficienceny- continue home dose of warfarin 5mg PO daily and 81 mg ASA, with daily PT/INR, Pt is within therapeutic range today 2.1 . Therefore no need for additional DVT ppx. Ordered Teds stockings for additional dvt ppx. 3. Chronic Gout- continue on home dose of Allopurinol, limit protein in diet. 4. Noncalcified Multiple pulmonary Nodules- non smoker, follow up as out pt for repeat scan in 3-6 months, followed by 12-18 months. 5. Hepatic steatosis- as outpatient encourage weight loss, refreain from ETOH, follow up with PCP as outpatient. <Kenzie Jaimes - Last Filed: 09/17/20 23:14> H&P History of Present Illness - General Admit Problem/Dx: Admission Diagnosis/Problem Admission Diagnosis/Problem Viral respiratory infection Back Pain Score (Numeric/FACES): 2 Exam - Vital Signs Vital Signs: Last Vital Signs Temp 36.5 C 09/13/20 09:05 Pulse 55 L 09/12/20 19:00 Resp 21 H 09/13/20 15:06 BP 133/64 09/13/20 15:06 Pulse Ox 92 L 09/13/20 15:06 - Patient Data Result Diagrams: 09/13/20 06:34 09/13/20 06:34 Assessment/Plan Comment:: I have seen and evaluated the patient independently. I have discussed findings and treatment plan with resident. I agree with the assessment and plan in the following note.
[2020-09-11] MEDS ORDERED: Warfarin 5 MG Tab PO ONE (16:15)
[2020-09-11] MEDS: Albuterol/Ipratropium 4 GM Inhalation Spray INH SCH ×3 (16:51→23:43)
[2020-09-11] MEDS ORDERED: FLU VACC QS2020-21(6MOS UP)/PF 60 MCG/0.5 ML SYRINGE IM ONE (17:00)
[2020-09-11] MEDS: Sodium Chloride 0.9% 10 ML Syringe FLUSH PRN ×2 (20:00→23:15)
[2020-09-12] MEDS: Albuterol/Ipratropium 4 GM Inhalation Spray INH SCH ×3 (03:51→11:19)
[2020-09-12] MEDS: Acetaminophen 325 MG Tab PO PRN ×3 (03:59→19:51)
[2020-09-12] MEDS: Sodium Chloride 0.9% 10 ML Syringe FLUSH PRN ×2 (04:01→20:00)
[2020-09-12 06:33] LABS: BLOOD UREA NITROGEN,BUN 24 mg/dL (7.0-18.0); CARBON DIOXIDE,CO2 24.3 mmol/L (21.0-32.0); CHLORIDE,CL 102 mmol/L (98-107); GLUCOSE RANDOM 123 mg/dL (74-106); SODIUM,NA 136 mmol/L (136-148)
[2020-09-12] MEDS: Sodium Chloride 0.9% 2.5 ML Syringe FLUSH PRN ×2 (08:05→11:20)
[2020-09-12] MEDS: Dexamethasone 4 MG Tab PO SCH (08:11)
[2020-09-12] MEDS ORDERED: Dexamethasone 10 MG/ML SDV IVPUSH SCH (09:00)
[2020-09-12] MEDS: Levofloxacin/Dextrose 5%-Water 750 MG in Premix Bag 1 BAG IV SCH (11:18)
--- NOTE | 2020-09-12 11:56 | PCM.PN ---
- General Info Date of Service: 09/12/20 Admission Dx/Problem (Free Text): Pt is a 55 y/o M with a PMHx of Factor V Laden Deficiency and gout. Currently on half-way warfarin therapy. Was directly admitted yesterday from the respiratory therapy clinic for poor oxygen saturation. Was put on 3L , and advanced to 8L's, then transitioned to Bipap; which he felt was an adjustment and uncomfortable. Therefore, last night we kept switching between Bipap and 10 L's of high flow oxygen. This morning, was on high flow duringIs breakfast and transitioned back to Bipap to help maintain O2 levels above 90%. Denies any fever, chills, cough, chest pain. Is feeling tired due to poor sleep. Functional Status: Reports: Incentive Spirometry - Review of Systems General: Reports: No Symptoms, Fatigue. Denies: Fever, Weakness, Chills, Night Sweats, Appetite HEENT: Reports: No Symptoms Pulmonary: Denies: Pleuritic Chest Pain, Cough, Sputum, Hemoptysis, Wheezing Cardiovascular: Reports: No Symptoms. Denies: Chest Pain, Palpitations, Edema Gastrointestinal: Reports: No Symptoms Genitourinary: Reports: No Symptoms Musculoskeletal: Reports: No Symptoms Skin: Reports: No Symptoms Neurological: Reports: No Symptoms Psychiatric: Reports: No Symptoms - Patient Data Vitals - Most Recent: Last Vital Signs Temp 96.7 F L 09/12/20 08:13 Pulse 75 09/12/20 08:13 Resp 18 09/12/20 08:13 BP 106/64 09/12/20 08:13 Pulse Ox 91 L 09/12/20 09:54 Weight - Most Recent: 207 lb 4.8 oz I&O - Last 24 Hours: Intake & Output 09/11/20 09/12/20 09/12/20 22:59 06:59 14:59 Intake Total 200 683 Output Total 150 820 Balance 50 -137 Lab Results Last 24 Hours: Laboratory Results - last 24 hr 09/11/20 09/11/20 09/11/20 Range/Units 13:08 13:08 13:08 WBC 5.74 (4.0-11.0) K/uL RBC 5.53 (4.50-5.90) M/uL Hgb 18.2 H (13.0-17.0) g/dL Hct 52.3 H (38.0-50.0) % MCV 94.6 (80.0-98.0) fL MCH 32.9 H (27.0-32.0) pg MCHC 34.8 (31.0-37.0) g/dL RDW Std Deviation 44.5 (28.0-62.0) fl RDW Coeff of Aristeo 13 (11.0-15.0) % Plt Count 100 L (150-400) K/uL MPV 11.10 (7.40-12.00) fL Neut % (Auto) 78.8 (48.0-80.0) % Lymph % (Auto) 11.8 L (16.0-40.0) % [place] % (Auto) 9.2 (0.0-15.0) % Eos % (Auto) 0.0 (0.0-7.0) % Baso % (Auto) 0.2 (0.0-1.5) % Neut # (Auto) 4.5 (1.4-5.7) K/uL Lymph # (Auto) 0.7 (0.6-2.4) K/uL [place] # (Auto) 0.5 (0.0-0.8) K/uL Eos # (Auto) 0.0 (0.0-0.7) K/uL Baso # (Auto) 0.0 (0.0-0.1) K/uL Nucleated RBC % 0.0 /100WBC Nucleated RBCs # 0 K/uL INR D-Dimer, Quantitative 1.60 H (0.0-0.50) mg/L FEU VBG pH (7.31-7.41) VBG pCO2 (35-45) mmHG VBG pO2 (30-40) mmHG VBG HCO3 (22-30) mEq/L VBG Total CO2 (41-51) mmol/L VBG Base Excess (-3.0-3.0) Lactate (0.20-2.00) mmol/L Sodium 133 L (136-148) mmol/L Potassium 4.1 (3.5-5.1) mmol/L Chloride 98 (98-107) mmol/L Carbon Dioxide 24.1 (21.0-32.0) mmol/L BUN 22 H (7.0-18.0) mg/dL Creatinine 1.1 (0.8-1.3) mg/dL Est Cr Clr Drug Dosing 70.11 mL/min Estimated GFR (MDRD) > 60.0 ml/min Glucose 103 (74-106) mg/dL Calcium 8.6 (8.5-10.1) mg/dL Total Bilirubin 0.7 (0.2-1.0) mg/dL AST 51 H (15-37) IU/L ALT 50 (14-63) IU/L Alkaline Phosphatase 66 (46-116) U/L Troponin I < 0.050 (0.000-0.056) ng/mL Total Protein 7.7 (6.4-8.2) g/dL Albumin 3.2 L (3.4-5.0) g/dL Globulin 4.5 H (2.6-4.0) g/dL Albumin/Globulin Ratio 0.7 L (0.9-1.6) SARS-CoV-2 RNA (ANDREW) (NEGATIVE) Blood Type Antibody Screen 09/11/20 09/11/20 09/11/20 Range/Units 13:08 13:08 13:08 WBC (4.0-11.0) K/uL RBC (4.50-5.90) M/uL Hgb (13.0-17.0) g/dL Hct (38.0-50.0) % MCV (80.0-98.0) fL MCH (27.0-32.0) pg MCHC (31.0-37.0) g/dL RDW Std Deviation (28.0-62.0) fl RDW Coeff of Aristeo (11.0-15.0) % Plt Count (150-400) K/uL MPV (7.40-12.00) fL Neut % (Auto) (48.0-80.0) % Lymph % (Auto) (16.0-40.0) % [place] % (Auto) (0.0-15.0) % Eos % (Auto) (0.0-7.0) % Baso % (Auto) (0.0-1.5) % Neut # (Auto) (1.4-5.7) K/uL Lymph # (Auto) (0.6-2.4) K/uL [place] # (Auto) (0.0-0.8) K/uL Eos # (Auto) (0.0-0.7) K/uL Baso # (Auto) (0.0-0.1) K/uL Nucleated RBC % /100WBC Nucleated RBCs # K/uL INR 2.11 D-Dimer, Quantitative (0.0-0.50) mg/L FEU VBG pH 7.45 H (7.31-7.41) VBG pCO2 36 (35-45) mmHG VBG pO2 44 H (30-40) mmHG VBG HCO3 25 (22-30) mEq/L VBG Total CO2 21 L (41-51) mmol/L VBG Base Excess 0.9 (-3.0-3.0) Lactate 1.3 (0.20-2.00) mmol/L Sodium (136-148) mmol/L Potassium (3.5-5.1) mmol/L Chloride (98-107) mmol/L Carbon Dioxide (21.0-32.0) mmol/L BUN (7.0-18.0) mg/dL Creatinine (0.8-1.3) mg/dL Est Cr Clr Drug Dosing mL/min Estimated GFR (MDRD) ml/min Glucose (74-106) mg/dL Calcium (8.5-10.1) mg/dL Total Bilirubin (0.2-1.0) mg/dL AST (15-37) IU/L ALT (14-63) IU/L Alkaline Phosphatase (46-116) U/L Troponin I (0.000-0.056) ng/mL Total Protein (6.4-8.2) g/dL Albumin (3.4-5.0) g/dL Globulin (2.6-4.0) g/dL Albumin/Globulin Ratio (0.9-1.6) SARS-CoV-2 RNA (ANDREW) (NEGATIVE) Blood Type Antibody Screen 09/11/20 09/11/20 09/12/20 Range/Units 13:08 17:15 05:40 WBC 6.26 (4.0-11.0) K/uL RBC 4.94 (4.50-5.90) M/uL Hgb 16.0 (13.0-17.0) g/dL Hct 46.8 (38.0-50.0) % MCV 94.7 (80.0-98.0) fL MCH 32.4 H (27.0-32.0) pg MCHC 34.2 (31.0-37.0) g/dL RDW Std Deviation 43.8 (28.0-62.0) fl RDW Coeff of Aristeo 13 (11.0-15.0) % Plt Count 108 L (150-400) K/uL MPV 11.10 (7.40-12.00) fL Neut % (Auto) 80.9 H (48.0-80.0) % Lymph % (Auto) 11.0 L (16.0-40.0) % [place] % (Auto) 8.1 (0.0-15.0) % Eos % (Auto) 0.0 (0.0-7.0) % Baso % (Auto) 0.0 (0.0-1.5) % Neut # (Auto) 5.1 (1.4-5.7) K/uL Lymph # (Auto) 0.7 (0.6-2.4) K/uL [place] # (Auto) 0.5 (0.0-0.8) K/uL Eos # (Auto) 0.0 (0.0-0.7) K/uL Baso # (Auto) 0.0 (0.0-0.1) K/uL Nucleated RBC % 0.0 /100WBC Nucleated RBCs # 0 K/uL INR D-Dimer, Quantitative (0.0-0.50) mg/L FEU VBG pH (7.31-7.41) VBG pCO2 (35-45) mmHG VBG pO2 (30-40) mmHG VBG HCO3 (22-30) mEq/L VBG Total CO2 (41-51) mmol/L VBG Base Excess (-3.0-3.0) Lactate (0.20-2.00) mmol/L Sodium (136-148) mmol/L Potassium (3.5-5.1) mmol/L Chloride (98-107) mmol/L Carbon Dioxide (21.0-32.0) mmol/L BUN (7.0-18.0) mg/dL Creatinine (0.8-1.3) mg/dL Est Cr Clr Drug Dosing mL/min Estimated GFR (MDRD) ml/min Glucose (74-106) mg/dL Calcium (8.5-10.1) mg/dL Total Bilirubin (0.2-1.0) mg/dL AST (15-37) IU/L ALT (14-63) IU/L Alkaline Phosphatase (46-116) U/L Troponin I (0.000-0.056) ng/mL Total Protein (6.4-8.2) g/dL Albumin (3.4-5.0) g/dL Globulin (2.6-4.0) g/dL Albumin/Globulin Ratio (0.9-1.6) SARS-CoV-2 RNA (ANDREW) POSITIVE H (NEGATIVE) Blood Type O POSITIVE Antibody Screen NEGATIVE 09/12/20 09/12/20 Range/Units 05:40 05:40 WBC (4.0-11.0) K/uL RBC (4.50-5.90) M/uL Hgb (13.0-17.0) g/dL Hct (38.0-50.0) % MCV (80.0-98.0) fL MCH (27.0-32.0) pg MCHC (31.0-37.0) g/dL RDW Std Deviation (28.0-62.0) fl RDW Coeff of Aristeo (11.0-15.0) % Plt Count (150-400) K/uL MPV (7.40-12.00) fL Neut % (Auto) (48.0-80.0) % Lymph % (Auto) (16.0-40.0) % [place] % (Auto) (0.0-15.0) % Eos % (Auto) (0.0-7.0) % Baso % (Auto) (0.0-1.5) % Neut # (Auto) (1.4-5.7) K/uL Lymph # (Auto) (0.6-2.4) K/uL [place] # (Auto) (0.0-0.8) K/uL Eos # (Auto) (0.0-0.7) K/uL Baso # (Auto) (0.0-0.1) K/uL Nucleated RBC % /100WBC Nucleated RBCs # K/uL INR 2.23 D-Dimer, Quantitative (0.0-0.50) mg/L FEU VBG pH (7.31-7.41) VBG pCO2 (35-45) mmHG VBG pO2 (30-40) mmHG VBG HCO3 (22-30) mEq/L VBG Total CO2 (41-51) mmol/L VBG Base Excess (-3.0-3.0) Lactate (0.20-2.00) mmol/L Sodium 136 (136-148) mmol/L Potassium 4.0 (3.5-5.1) mmol/L Chloride 102 (98-107) mmol/L Carbon Dioxide 24.3 (21.0-32.0) mmol/L BUN 24 H (7.0-18.0) mg/dL Creatinine 1.1 (0.8-1.3) mg/dL Est Cr Clr Drug Dosing 77.42 mL/min Estimated GFR (MDRD) > 60.0 ml/min Glucose 123 H (74-106) mg/dL Calcium 8.3 L (8.5-10.1) mg/dL Total Bilirubin 0.6 (0.2-1.0) mg/dL AST 42 H (15-37) IU/L ALT 41 (14-63) IU/L Alkaline Phosphatase 60 (46-116) U/L Troponin I (0.000-0.056) ng/mL Total Protein 6.9 (6.4-8.2) g/dL Albumin 2.7 L (3.4-5.0) g/dL Globulin 4.2 H (2.6-4.0) g/dL Albumin/Globulin Ratio 0.6 L (0.9-1.6) SARS-CoV-2 RNA (ANDREW) (NEGATIVE) Blood Type Antibody Screen Med Orders - Current: Current Medications Acetaminophen (Tylenol) 650 mg PO Q4H PRN PRN Reason: Pain (Mild 1-3)/fever Last Admin: 09/12/20 08:11 Dose: 650 mg Documented by: Albuterol/Ipratropium (Duoneb 3.0-0.5 Mg/3 Ml) 3 ml NEB Q4HRRT [facility] Dexamethasone (Dexamethasone) 6 mg PO DAILY [facility] Last Admin: 09/12/20 08:11 Dose: 6 mg Documented by: Remdesivir 100 mg/ Sodium (Chloride) 100 mls @ 100 mls/hr IV Q24H FER Stop: 09/15/20 17:29 Levofloxacin/Dextrose 750 mg/ (Premix) 150 mls @ 100 mls/hr IV Q24H [facility] Last Admin: 09/12/20 11:18 Dose: 100 mls/hr Documented by: Ondansetron HCl (Zofran Odt) 4 mg PO Q4H PRN PRN Reason: nausea, able to take PO Ondansetron HCl (Zofran) 4 mg IVPUSH Q4H PRN PRN Reason: Nausea Sodium Chloride (Saline Flush) 10 ml FLUSH ASDIRECTED PRN PRN Reason: Keep Vein Open Last Admin: 09/12/20 04:01 Dose: 10 ml Documented by: Sodium Chloride (Saline Flush) 2.5 ml FLUSH ASDIRECTED PRN PRN Reason: Keep Vein Open Last Admin: 09/12/20 11:20 Dose: 2.5 ml Documented by: Warfarin Sodium (Coumadin Ask) 1 each PO Q24H [facility] Last Admin: 09/11/20 17:09 Dose: Not Given Documented by: Discontinued Medications Albuterol/Ipratropium (Combivent Respimat) 0 gm INH Q4H [facility] Last Admin: 09/12/20 11:19 Dose: 1 puff Documented by: Dexamethasone (Dexamethasone) 6 mg PO ONETIME ONE Stop: 09/11/20 12:38 Last Admin: 09/11/20 13:53 Dose: 6 mg Documented by: Dexamethasone (Dexamethasone) 6 mg IVPUSH DAILY [facility] Sodium Chloride (Normal Saline) 1,000 mls @ 999 mls/hr IV STAT ONE Stop: 09/11/20 13:26 Last Admin: 09/11/20 13:14 Dose: 999 mls/hr Documented by: Remdesivir 200 mg/ Sodium (Chloride) 250 mls @ 250 mls/hr IV ONETIME ONE Stop: 09/11/20 17:29 Last Admin: 09/11/20 16:51 Dose: 250 mls/hr Documented by: Influenza Virus Vaccine (Fluzone Quad [id number] Syringe) 60 mcg IM .ONCE ONE Stop: 09/11/20 17:01 Iopamidol (Isovue Multipack-370 (76%)) 75 ml IVPUSH ONETIME STA Stop: 09/11/20 14:48 Last Admin: 09/11/20 14:48 Dose: 75 ml Documented by: Warfarin Sodium (Coumadin) 5 mg PO ONETIME ONE Stop: 09/11/20 16:16 Last Admin: 09/11/20 16:51 Dose: 5 mg Documented by: - Exam Quality Assessment: Supplemental Oxygen General: Alert, Oriented, Cooperative, Mild Distress HEENT: Pupils Equal, Pupils Reactive, EOMI, Mucous Membr. Moist/[place] Neck: Supple, Trachea Midline, No JVD Lungs: Clear to Auscultation, Normal Respiratory Effort. No: Decreased Breath Sounds, Crackles, Rales, Rhonchi, Rub, Stridor, Wheezing Cardiovascular: Regular Rate, Regular Rhythm, No Murmurs GI/Abdominal Exam: Normal Bowel Sounds, Soft, Non-Tender, No Organomegaly Back Exam: Normal Inspection, Full Range of Motion Extremities: Normal Inspection, Normal Range of Motion, Non-Tender, No Pedal Edema, Normal Capillary Refill Peripheral Pulses: 2+: Dorsalis Pedis (L), Dorsalis Pedis (R) Skin: Warm, Dry, Intact Neurological: No New Focal Deficit Psy/Mental Status: Alert, Normal Affect, Normal Mood Sepsis Event Note - Evaluation Sepsis Screening Result: No Definite Risk - Focused Exam Vital Signs: Vital Signs Temp Temp Pulse Resp BP Pulse Ox Pulse Ox 09/12/20 09:54 91 L 09/12/20 08:41 09/12/20 08:13 96.7 F L 75 18 106/64 86 L 09/12/20 04:00 97.7 F 60 22 H 118/62 91 L 09/12/20 01:01 97.6 F 60 20 122/65 92 L 09/12/20 00:00 97.8 F 60 20 122/65 92 L 09/11/20 23:59 97.8 F 60 19 120/65 92 L Pulse Ox 09/12/20 09:54 09/12/20 08:41 88 L 09/12/20 08:13 09/12/20 04:00 09/12/20 01:01 09/12/20 00:00 09/11/20 23:59 - Problem List & Annotations (1) Factor 5 Leiden mutation, heterozygous SNOMED Code(s): 420058546 Code(s): D68.51 - ACTIVATED PROTEIN C RESISTANCE Status: Chronic Current Visit: Yes (2) Pulmonary nodules/lesions, multiple SNOMED Code(s): 808940961 Code(s): R91.8 - OTHER NONSPECIFIC ABNORMAL FINDING OF LUNG FIELD Status: Chronic Current Visit: Yes (3) Gout SNOMED Code(s): 24774211 Code(s): M10.9 - GOUT, UNSPECIFIED Status: Chronic Current Visit: Yes (4) Hepatic steatosis SNOMED Code(s): 919723904 Code(s): K76.0 - FATTY (CHANGE OF) LIVER, NOT ELSEWHERE CLASSIFIED Status: Acute Current Visit: Yes - Problem List Review Problem List Initiated/Reviewed/Updated: Yes - My Orders Last 24 Hours: My Active Orders 09/11/20 14:00 Warfarin Dosing [Coumadin Ask] 1 each PO Q24H 09/11/20 15:09 Oxygen Therapy [RC] PRN Up ad Naila [RC] ASDIRECTED VTE/DVT Education [RC] PER UNIT ROUTINE Vital Signs [RC] Q4H Acetaminophen [TylenoL] 650 mg PO Q4H PRN Ondansetron [Zofran ODT] 4 mg PO Q4H PRN Ondansetron [Zofran] 4 mg IVPUSH Q4H PRN Resuscitation Status Routine 09/11/20 15:10 Sequential Compression Device [OM.PC] Per Unit Routine 09/11/20 15:12 Antiembolic Devices [RC] PER UNIT ROUTINE 09/11/20 15:41 Communication Order [RC] ROUTINE 09/11/20 15:42 Incentive Spirometry [RT Incentive Spirometry] [RC] ASDIRECTED 09/11/20 16:29 Verify Patient Consent Obtain [RC] ASDIRECTED 09/11/20 17:15 FRESH FROZEN PLASMA [BBK] Routine TYPE AND SCREEN [BBK] Routine 09/11/20 17:48 BIPAP Adult [RT BiPAP/CPAP] [RC] ASDIRECTED 09/12/20 11:37 RT Aerosol Therapy [RC] ASDIRECTED 09/12/20 14:00 Albuterol/Ipratropium [DuoNeb 3.0-0.5 MG/3 ML] 3 ml NEB Q4HRRT 09/12/20 16:30 Remdesivir (Eua) [Remdesivir (EUA)] 100 mg Sodium Chloride 0.9% [Normal Saline] 100 ml IV Q24H 09/13/20 05:11 INR,PT,PROTHROMBIN TIME [COAG] DAILY 09/14/20 05:11 INR,PT,PROTHROMBIN TIME [COAG] DAILY 09/15/20 05:11 INR,PT,PROTHROMBIN TIME [COAG] DAILY 09/16/20 05:11 INR,PT,PROTHROMBIN TIME [COAG] DAILY - Plan Plan:: Pt is a 55 y/o M with being treated for Acute hypoxic respiratory failure secondary to COVID 19. 1. For Covid19 currently requiring Bipap with FiO2 60%, will be closely monitored in the ICU, with oal of maintaining O2 sat's above 92%. Tylenol 650mg PRN if he develops a fever. Dexamethasone IV 1 dose daily for 10 days, schedules Q4 Duonebs. Started Remdesivir yesterday, was given 200mg IV loading dose per pt consent. Today will be followed by 4 days additional doses of 100mg daily. Pt was above 5L O2 requirement, per his consent was given Covalescent plasma 1 dose yesterday, will receive second dose today. Encouraged proning and incentive spirometry. 2. For Factor V Laden Deficiency- continue home dose of warfarin 5mg PO daily and 81 mg ASA, with daily PT/INR, Pt is within therapeutic range today 2.23. Therefore no need for additional medication DVT ppx, will use Teds stockings for additional dvt ppx. 3. Chronic Gout- continue on home dose of Allopurinol, limit protein in diet. 4. Noncalcified Multiple pulmonary Nodules- non smoker, follow up as out pt for repeat scan in 3-6 months, followed by 12-18 months. 5. Hepatic steatosis- as outpatient encourage weight loss, refrain from ETOH, follow up with PCP as outpatient.
[2020-09-12] MEDS ORDERED: Warfarin 5 MG Tab PO SCH (14:30)
[2020-09-12] MEDS: Albuterol/Ipratropium 3.0-0.5 MG/3 ML Neb Soln NEB SCH ×3 (15:02→21:11)
--- NOTE | 2020-09-12 15:46 | PN ---
THC Physician - Brief Progress [id number]/20/2020 15:44[facility] [place]a Dozier, [place] - MW[facility] - MWN ICUWHEARTYPAULA, JUSTUSIDDate of Service 09/12/2020 15:44HP I/Events of Note eICU Admission [id number] admitted for respiratory failure attributed to COVID. History obtained from review of EMR.PMH: Factor V leiden deficiency on warfarin, gout on allopurinol, recent diagnosis of COVID on 09/07HPI: Patient was originally admitted on 09/11 for hypoxemic respiratory f ailure attributed to COVID.Course was complicated by increasing oxygen requirements, for which he was transferred to the ICU for further management.Camera exam: Laying in bed. Vitals monitor reviewed. e ICU Impression and Recommendations:Acute hypoxemic respiratory failure attributed to COVID pneumoniaF actor V leidenIsolation precautions per local policyDexamethasone 6mg daily for 10 daysDefer Remdesiv ir and convalescent plasma to local hospital policy and ID recommendations, we are available to comme nt/assist if desired Continue NIV as neededAwake proning as toleratedSuggest targeting a neutral to n egative net fluid balance as tolerated hemodynamicallyContinue anticoagulationDVT and GI prophylaxis as appropriate.Thank you for allowing us to participate in the care of this patient.The above note tr anscribed with the assistance of dictation software. Please excuse any errors.Interventions Major-Res piratory failure - evaluation and managementElectronically Signed by: MELVIN DUBOSE) on 020 15:45
[2020-09-12] MEDS ORDERED: REMDESIVIR (EUA) 100 MG in Sodium Chloride 0.9% 100 ML IV SCH (16:30)
[2020-09-13] MEDS: Albuterol/Ipratropium 3.0-0.5 MG/3 ML Neb Soln NEB SCH ×3 (02:09→09:41)
[2020-09-13] MEDS: Sodium Chloride 0.9% 10 ML Syringe FLUSH PRN ×2 (04:15)
[2020-09-13] MEDS: Acetaminophen 325 MG Tab PO PRN (08:57)
[2020-09-13] MEDS: Dexamethasone 4 MG Tab PO SCH (08:59)
--- NOTE | 2020-09-13 10:06 | PCM.PN ---
- General Info Date of Service: 09/13/20 - Review of Systems Systems Review Comment:: reports some improvement in breath, pleuritic chest pain has resolved - Patient Data Vitals - Most Recent: Last Vital Signs Temp 36.5 C 09/13/20 09:05 Pulse 55 L 09/12/20 19:00 Resp 33 H 09/13/20 09:22 BP 120/60 09/13/20 09:22 Pulse Ox 91 L 09/13/20 09:22 Weight - Most Recent: 94.03 kg I&O - Last 24 Hours: Intake & Output 09/12/20 09/13/20 09/13/20 22:59 06:59 14:59 Intake Total 584 480 Output Total 350 680 Balance 234 -200 Lab Results Last 24 Hours: Laboratory Results - last 24 hr 09/11/20 09/13/20 09/13/20 Range/Units 17:15 06:34 06:34 WBC 8.39 (4.0-11.0) K/uL RBC 5.10 (4.50-5.90) M/uL Hgb 16.6 (13.0-17.0) g/dL Hct 48.3 (38.0-50.0) % MCV 94.7 (80.0-98.0) fL MCH 32.5 H (27.0-32.0) pg MCHC 34.4 (31.0-37.0) g/dL RDW Std Deviation 43.6 (28.0-62.0) fl RDW Coeff of Aristeo 13 (11.0-15.0) % Plt Count 141 L (150-400) K/uL MPV 11.20 (7.40-12.00) fL Neut % (Auto) 84.8 H (48.0-80.0) % Lymph % (Auto) 9.1 L (16.0-40.0) % [place] % (Auto) 6.1 (0.0-15.0) % Eos % (Auto) 0.0 (0.0-7.0) % Baso % (Auto) 0.0 (0.0-1.5) % Neut # (Auto) 7.1 H (1.4-5.7) K/uL Lymph # (Auto) 0.8 (0.6-2.4) K/uL [place] # (Auto) 0.5 (0.0-0.8) K/uL Eos # (Auto) 0.0 (0.0-0.7) K/uL Baso # (Auto) 0.0 (0.0-0.1) K/uL Nucleated RBC % 0.0 /100WBC Nucleated RBCs # 0 K/uL INR 2.88 Blood Type O POSITIVE Antibody Screen NEGATIVE Med Orders - Current: Current Medications Acetaminophen (Tylenol) 650 mg PO Q4H PRN PRN Reason: Pain (Mild 1-3)/fever Last Admin: 09/13/20 08:57 Dose: 650 mg Documented by: Albuterol/Ipratropium (Duoneb 3.0-0.5 Mg/3 Ml) 3 ml NEB Q4HRRT [facility] Last Admin: 09/13/20 09:41 Dose: 3 ml Documented by: Dexamethasone (Dexamethasone) 6 mg PO DAILY [facility] Last Admin: 09/13/20 08:59 Dose: 6 mg Documented by: Remdesivir 100 mg/ Sodium (Chloride) 100 mls @ 100 mls/hr IV Q24H [facility] Stop: 09/15/20 17:29 Last Admin: 09/12/20 17:53 Dose: 100 mls/hr Documented by: Levofloxacin/Dextrose 750 mg/ (Premix) 150 mls @ 100 mls/hr IV Q24H [facility] Last Admin: 09/12/20 11:18 Dose: 100 mls/hr Documented by: Ondansetron HCl (Zofran Odt) 4 mg PO Q4H PRN PRN Reason: nausea, able to take PO Ondansetron HCl (Zofran) 4 mg IVPUSH Q4H PRN PRN Reason: Nausea Sodium Chloride (Saline Flush) 10 ml FLUSH ASDIRECTED PRN PRN Reason: Keep Vein Open Last Admin: 09/13/20 04:15 Dose: 10 ml Documented by: Sodium Chloride (Saline Flush) 2.5 ml FLUSH ASDIRECTED PRN PRN Reason: Keep Vein Open Last Admin: 09/12/20 11:20 Dose: 2.5 ml Documented by: Warfarin Sodium (Coumadin Ask) 1 each PO Q24H [facility] Last Admin: 09/12/20 14:28 Dose: Not Given Documented by: Discontinued Medications Albuterol/Ipratropium (Combivent Respimat) 0 gm INH Q4H [facility] Last Admin: 09/12/20 11:19 Dose: 1 puff Documented by: Dexamethasone (Dexamethasone) 6 mg PO ONETIME ONE Stop: 09/11/20 12:38 Last Admin: 09/11/20 13:53 Dose: 6 mg Documented by: Dexamethasone (Dexamethasone) 6 mg IVPUSH DAILY [facility] Sodium Chloride (Normal Saline) 1,000 mls @ 999 mls/hr IV STAT ONE Stop: 09/11/20 13:26 Last Admin: 09/11/20 13:14 Dose: 999 mls/hr Documented by: Remdesivir 200 mg/ Sodium (Chloride) 250 mls @ 250 mls/hr IV ONETIME ONE Stop: 09/11/20 17:29 Last Admin: 09/11/20 16:51 Dose: 250 mls/hr Documented by: Influenza Virus Vaccine (Fluzone Quad [id number] Syringe) 60 mcg IM .ONCE ONE Stop: 09/11/20 17:01 Iopamidol (Isovue Multipack-370 (76%)) 75 ml IVPUSH ONETIME STA Stop: 09/11/20 14:48 Last Admin: 09/11/20 14:48 Dose: 75 ml Documented by: Warfarin Sodium (Coumadin) 5 mg PO ONETIME ONE Stop: 09/11/20 16:16 Last Admin: 09/11/20 16:51 Dose: 5 mg Documented by: Warfarin Sodium (Coumadin) 5 mg PO 09/12/20@1430 FER Stop: 09/12/20 14:31 Last Admin: 09/12/20 16:04 Dose: 5 mg Documented by: - Exam General: Alert, Oriented Neck: Supple Lungs: Decreased Breath Sounds GI/Abdominal Exam: Normal Bowel Sounds, Soft, Non-Tender, No Distention Extremities: Non-Tender, No Pedal Edema Skin: Warm, Dry, Intact Neurological: No New Focal Deficit Sepsis Event Note - Evaluation Sepsis Screening Result: No Definite Risk - Focused Exam Vital Signs: Vital Signs Temp Resp BP Pulse Ox 09/13/20 09:22 33 H 120/60 91 L 09/13/20 09:05 36.5 C 12 117/57 L 88 L 09/13/20 08:22 40 H 120/61 94 L 09/13/20 07:00 28 H 116/57 L 92 L 09/13/20 06:00 22 H 92 L 09/13/20 05:00 29 H 96/44 L 91 L 09/13/20 04:00 36.8 C 31 H 112/51 L 91 L 09/13/20 03:00 24 H 109/56 L 92 L 09/13/20 02:00 29 H 119/55 L 90 L 09/13/20 01:00 28 H 112/61 90 L 09/13/20 00:00 36.8 C 22 H 106/51 L 90 L 09/12/20 23:00 32 H 106/54 L 92 L - Problem List Review Problem List Initiated/Reviewed/Updated: Yes - My Orders Last 24 Hours: My Active Orders 09/13/20 10:05 COMPREHENSIVE METABOLIC PN,CMP [CHEM] Routine 09/14/20 05:11 CBC WITH AUTO DIFF [HEME] AM - Plan Plan:: Pt is a 55 y/o M with being treated for Acute hypoxic respiratory failure secondary to COVID 19. COVID: continue remdesivir, dexemathason, s/p 2 units of convalexent plasma Acute hyposic respiratory failure: on BIPAP with Fi02 of 70%, 15 L HFNC while eating. 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
[2020-09-13 10:36] LABS: BLOOD UREA NITROGEN,BUN 23 mg/dL (7.0-18.0); CARBON DIOXIDE,CO2 25.8 mmol/L (21.0-32.0); CHLORIDE,CL 102 mmol/L (98-107); GLUCOSE RANDOM 167 mg/dL (74-106); POTASSIUM,K 3.8 mmol/L (3.5-5.1); SODIUM,NA 139 mmol/L (136-148)
[2020-09-13] MEDS: Levofloxacin/Dextrose 5%-Water 750 MG in Premix Bag 1 BAG IV SCH (11:09)
--- NOTE | 2020-09-13 11:32 | PN ---
THC Physician - Brief Progress [id number]/21/2020 11:16[facility] [place], [place] - MWN [facility] - МАРИНА ICUWHEARPAULA CRENSHAW, JUSTUSIDDate of Service 09/13/2020 11:16HP I/Events of Note 55M admitted for respiratory failure attributed to COVID. History obtained from revi ew of EMR.PMH: Factor V leiden deficiency on warfarin, gout on allopurinol, recent diagnosis of COVID on09/07HPI: Patient was originally admitted on 09/11 for hypoxemic respiratory failure attributed to COVID.Received 2 unis of convalescent plasma, on Remdesivir, DecadronProgressive respiratory failure , tachypne on BiPAP 08/28/70% up to 40. Appears uncomfortable and anxious.recommended increase FI2 to 100, ABG. Given clinical appearance think will will need to intubate, and givenat [place] does not keep intubated COVID patients, transfer out.discussed with NICOLE Mae:Interventions Major-Other: COVID PNA respiratory failure
[2020-09-13] MEDS ORDERED: propofoL 100 ML ONE (12:59)
[2020-09-13] MEDS ORDERED: fentaNYL 100 MCG/2 ML SDV ONE ×2 (12:59→13:02)
[2020-09-13] MEDS ORDERED: Propofol 200 MG/20 ML SDV ONE (13:02)
[2020-09-13] MEDS ORDERED: Midazolam 1 MG/ML 2 ML SDV ONE ×2 (13:02→13:06)
[2020-09-13] MEDS ORDERED: Succinylcholine/Sod PF 100 MG/5 ML SYRINGE IV ONE ×2 (13:04→13:39)
[2020-09-13] MEDS ORDERED: Rocuronium Bromide 50 MG/5 ML Syringe ONE (13:04)
--- NOTE | 2020-09-13 13:50 | PN ---
THC Physician - Brief Progress [id number]/21/2020 12:51[facility] [place], [place] - MARY JON (MORGAN) - МАРИНА ICUWHLES PAULAJUSTUS DIALLODepartment of [facility]anonte of Service 09/13/2020 12:51HP I/Events of Note On 100 % FiO2 ABG 7.457/ pCo2 32/ Po2 47;RR [address] Santos to in tubate and fly out ptrecommendation to give ~ 500ml fluid before intubation, more after PRNif hypot ensive. Have Pnenylephrine 100 mcg boluses + Norepi drip ready to treatInitial sedation recommende propofol ( eg 25 mcg/hg /min with rapid titration ) and fentanyl 50-100 mcg / hrInitial vent settin g : AC volume controlled, TV 6ml/kg IBW, RR 24, PEEP 10 100%. Adjust peak flow to I: E 2:1; may need to titrate to closer to 1:1\Interventions Major-Hypoxemia - evaluation and managementIntermediate-C ommunication with other healthcare providers and/or family
--- NOTE | 2020-09-13 14:07 | CR ---
INDICATION: COVID positive, post intubation TECHNIQUE: Chest 1 view. 1:43 p.m. COMPARISON: 1:42 p.m. FINDINGS: Cardiovascular and mediastinum: Heart size and vasculature are normal in caliber and appearance. Mediastinum is within normal limits. Lungs and pleural space: Patchy bilateral airspace opacities. ET tube in place the tip 5.5 centimeters from the mattie. No sign of pleural effusion. No pneumothorax. Bones and soft tissues: No significant findings. IMPRESSION: ET tube in place with the tip 5.5 centimeters from the mattie. Bilateral patchy airspace opacities possibly related to patient`s known COVID disease. Dictated by Louis Castro MD @ Sep 13 2020 1:58PM Signed by Dr. Louis Castro @ Sep 13 2020 2:05PM
--- NOTE | 2020-09-13 14:14 | PCM.PRNOTE ---
- Free Text/Narrative Note: Anes Note I was called to [facility] to inutbate this patient. PreO2 X 3 min with ambu bag. Intubated with ease using vidoe laryngoscope and 8.0 ET tube. Drugs 2 mg versed 100 mcg fentanyl 200 mg propofo 100 anectine. Intubated with ease. Airway is clear of vomit or secretions. BBS checked and equal Bless[facility] well. Time with patient [id number] Michael Negron CRNA
[2020-09-13] MEDS ORDERED: Famotidine 20 MG/2 ML SDV IVPUSH SCH (14:30)
--- NOTE | 2020-09-13 14:43 | PCM.DCSUM1 ---
Discharge Summary - Discharge Data Discharge Date: 09/13/20 Discharge Disposition: DC/Tfer to Acute Hospital 02 Condition: Critical - Referral to Home Health Primary Care Physician: PCP Not In Area - Patient Summary/Data Hospital Course: 55 year old male who was admitted for acute hypoxic respiratory failure due to COVID-19. He presented with shortness of breath and worsening fatigue. for one week. He found to be COVID positive on 09/07/2020. On admission he was satting 82% on RA. CT angio of chest reported bibasilar ground glass opacities. Patient has received two doses of Remdesivir and dexamethason. He has received one dose of Levaquin yesterday. He has received two units of convalescent plasma. His O2 requirements have continued to increase. Today he was on NIV 70% and was tachypneic. The decision was made to intubated. recent ABG of pH of 7.34, pCO2 39, pO2 of 66 on vent settings of TV 550, rate 20, Fio2 100 and peep10. Due to the likely need for prolong mechanical ventilation and sedation I called [facility] for transfer. Dr. Maximo Hurst has accepted the patient. - Discharge Plan Home Medications: Home Meds Allopurinol [Zyloprim] 300 mg PO DAILY 11/06/17 [History] Aspirin [[place] Aspirin EC] 81 mg PO DAILY 11/06/17 [History] Warfarin Sodium 5 mg PO DAILY 11/06/17 [History] Referrals: Marco House MD [Ordering Only Provider] - - Discharge Summary/Plan Comment DC Time >30 min.: Yes - Patient Data Vitals - Most Recent: Last Vital Signs Temp 36.5 C 09/13/20 09:05 Pulse 55 L 09/12/20 19:00 Resp 37 H 09/13/20 12:23 BP 117/67 09/13/20 12:23 Pulse Ox 93 L 09/13/20 12:23 Weight - Most Recent: 94.03 kg I&O - Last 24 hours: Intake & Output 09/12/20 09/13/20 09/13/20 22:59 06:59 14:59 Intake Total 584 480 Output Total 350 680 Balance 234 -200 Lab Results - Last 24 hrs: Laboratory Results - last 24 hr 09/11/20 09/13/2020 Range/Units 17:15 06:34 06:34 WBC 8.39 (4.0-11.0) K/uL RBC 5.10 (4.50-5.90) M/uL Hgb 16.6 (13.0-17.0) g/dL Hct 48.3 (38.0-50.0) % MCV 94.7 (80.0-98.0) fL MCH 32.5 H (27.0-32.0) pg MCHC 34.4 (31.0-37.0) g/dL RDW Std Deviation 43.6 (28.0-62.0) fl RDW Coeff of Aristeo 13 (11.0-15.0) % Plt Count 141 L (150-400) K/uL MPV 11.20 (7.40-12.00) fL Neut % (Auto) 84.8 H (48.0-80.0) % Lymph % (Auto) 9.1 L (16.0-40.0) % [place] % (Auto) 6.1 (0.0-15.0) % Eos % (Auto) 0.0 (0.0-7.0) % Baso % (Auto) 0.0 (0.0-1.5) % Neut # (Auto) 7.1 H (1.4-5.7) K/uL Lymph # (Auto) 0.8 (0.6-2.4) K/uL [place] # (Auto) 0.5 (0.0-0.8) K/uL Eos # (Auto) 0.0 (0.0-0.7) K/uL Baso # (Auto) 0.0 (0.0-0.1) K/uL Nucleated RBC % 0.0 /100WBC Nucleated RBCs # 0 K/uL INR 2.88 ABG pH (7.35-7.45) ABG pCO2 (35-45) mmHG ABG pO2 (75-100) mmHG ABG HCO3 (22-26) mEq/L ABG Total CO2 ABG Base Excess (-2.0-2.0) Sodium (136-148) mmol/L Potassium (3.5-5.1) mmol/L Chloride (98-107) mmol/L Carbon Dioxide (21.0-32.0) mmol/L BUN (7.0-18.0) mg/dL Creatinine (0.8-1.3) mg/dL Est Cr Clr Drug Dosing mL/min Estimated GFR (MDRD) ml/min Glucose (74-106) mg/dL Calcium (8.5-10.1) mg/dL Total Bilirubin (0.2-1.0) mg/dL AST (15-37) IU/L ALT (14-63) IU/L Alkaline Phosphatase (46-116) U/L Total Protein (6.4-8.2) g/dL Albumin (3.4-5.0) g/dL Globulin (2.6-4.0) g/dL Albumin/Globulin Ratio (0.9-1.6) Blood Type O POSITIVE Antibody Screen NEGATIVE 09/13/20 09/13/20 09/13/20 Range/Units 06:34 11:43 13:40 WBC (4.0-11.0) K/uL RBC (4.50-5.90) M/uL Hgb (13.0-17.0) g/dL Hct (38.0-50.0) % MCV (80.0-98.0) fL MCH (27.0-32.0) pg MCHC (31.0-37.0) g/dL RDW Std Deviation (28.0-62.0) fl RDW Coeff of Aristeo (11.0-15.0) % Plt Count (150-400) K/uL MPV (7.40-12.00) fL Neut % (Auto) (48.0-80.0) % Lymph % (Auto) (16.0-40.0) % [place] % (Auto) (0.0-15.0) % Eos % (Auto) (0.0-7.0) % Baso % (Auto) (0.0-1.5) % Neut # (Auto) (1.4-5.7) K/uL Lymph # (Auto) (0.6-2.4) K/uL [place] # (Auto) (0.0-0.8) K/uL Eos # (Auto) (0.0-0.7) K/uL Baso # (Auto) (0.0-0.1) K/uL Nucleated RBC % /100WBC Nucleated RBCs # K/uL INR ABG pH 7.457 H 7.387 (7.35-7.45) ABG pCO2 32 L 39 (35-45) mmHG ABG pO2 47 L 66 L (75-100) mmHG ABG HCO3 22 24 (22-26) mEq/L ABG Total CO2 18.8 20.5 ABG Base Excess -0.4 -1.3 (-2.0-2.0) Sodium 139 (136-148) mmol/L Potassium 3.8 (3.5-5.1) mmol/L Chloride 102 (98-107) mmol/L Carbon Dioxide 25.8 (21.0-32.0) mmol/L BUN 23 H (7.0-18.0) mg/dL Creatinine 1.2 (0.8-1.3) mg/dL Est Cr Clr Drug Dosing 70.97 mL/min Estimated GFR (MDRD) > 60.0 ml/min Glucose 167 H (74-106) mg/dL Calcium 8.6 (8.5-10.1) mg/dL Total Bilirubin 0.5 (0.2-1.0) mg/dL AST 44 H (15-37) IU/L ALT 40 (14-63) IU/L Alkaline Phosphatase 65 (46-116) U/L Total Protein 6.8 (6.4-8.2) g/dL Albumin 2.8 L (3.4-5.0) g/dL Globulin 4.0 (2.6-4.0) g/dL Albumin/Globulin Ratio 0.7 L (0.9-1.6) Blood Type Antibody Screen Med Orders - Current: Current Medications Acetaminophen (Tylenol) 650 mg PO Q4H PRN PRN Reason: Pain (Mild 1-3)/fever Last Admin: 09/13/20 08:57 Dose: 650 mg Documented by: Albuterol/Ipratropium (Duoneb 3.0-0.5 Mg/3 Ml) 3 ml NEB Q4HRRT [facility] Last Admin: 09/13/20 09:41 Dose: 3 ml Documented by: Dexamethasone (Dexamethasone) 6 mg PO DAILY [facility] Last Admin: 09/13/20 08:59 Dose: 6 mg Documented by: Famotidine (Pepcid) 20 mg IVPUSH DAILY [facility] Remdesivir 100 mg/ Sodium (Chloride) 100 mls @ 100 mls/hr IV Q24H [facility] Stop: 09/15/20 17:29 Last Admin: 09/12/20 17:53 Dose: 100 mls/hr Documented by: Levofloxacin/Dextrose 750 mg/ (Premix) 150 mls @ 100 mls/hr IV Q24H [facility] Last Admin: 09/13/20 11:09 Dose: 100 mls/hr Documented by: Ondansetron HCl (Zofran Odt) 4 mg PO Q4H PRN PRN Reason: nausea, able to take PO Ondansetron HCl (Zofran) 4 mg IVPUSH Q4H PRN PRN Reason: Nausea Sodium Chloride (Saline Flush) 10 ml FLUSH ASDIRECTED PRN PRN Reason: Keep Vein Open Last Admin: 09/13/20 04:15 Dose: 10 ml Documented by: Sodium Chloride (Saline Flush) 2.5 ml FLUSH ASDIRECTED PRN PRN Reason: Keep Vein Open Last Admin: 09/12/20 11:20 Dose: 2.5 ml Documented by: Warfarin Sodium (Coumadin Ask) 1 each PO Q24H [facility] Last Admin: 09/12/20 14:28 Dose: Not Given Documented by: Discontinued Medications Albuterol/Ipratropium (Combivent Respimat) 0 gm INH Q4H [facility] Last Admin: 09/12/20 11:19 Dose: 1 puff Documented by: Dexamethasone (Dexamethasone) 6 mg PO ONETIME ONE Stop: 09/11/20 12:38 Last Admin: 09/11/20 13:53 Dose: 6 mg Documented by: Dexamethasone (Dexamethasone) 6 mg IVPUSH DAILY [facility] Fentanyl (Sublimaze) Confirm Administered Dose 100 mcg .ROUTE .STK-MED ONE Stop: 09/13/20 13:00 Fentanyl (Sublimaze) Confirm Administered Dose 100 mcg .ROUTE .STK-MED ONE Stop: 09/13/20 13:03 Sodium Chloride (Normal Saline) 1,000 mls @ 999 mls/hr IV STAT ONE Stop: 09/11/20 13:26 Last Admin: 09/11/20 13:14 Dose: 999 mls/hr Documented by: Remdesivir 200 mg/ Sodium (Chloride) 250 mls @ 250 mls/hr IV ONETIME ONE Stop: 09/11/20 17:29 Last Admin: 09/11/20 16:51 Dose: 250 mls/hr Documented by: Norepinephrine Bitartrate (Norepinephr-0.9% Nacl 4 Mg/250) Confirm Administered Dose 4 mg in 250 mls @ as directed IV .STK-MED ONE Stop: 09/13/20 12:59 Propofol (Diprivan 100 Ml) Confirm Administered Dose 100 mls @ as directed .ROUTE .STK-MED ONE Stop: 09/13/20 13:00 Influenza Virus Vaccine (Fluzone Quad Syringe) 60 mcg IM .ONCE ONE Stop: 09/11/20 17:01 Iopamidol (Isovue Multipack-370 (76%)) 75 ml IVPUSH ONETIME STA Stop: 09/11/20 14:48 Last Admin: 09/11/20 14:48 Dose: 75 ml Documented by: Midazolam HCl (Versed 1 Mg/Ml) Confirm Administered Dose 2 mg .ROUTE .STK-MED ONE Stop: 09/13/20 13:03 Midazolam HCl (Versed 1 Mg/Ml) Confirm Administered Dose 2 mg .ROUTE .STK-MED ONE Stop: 09/13/20 13:07 Propofol (Diprivan 20 Ml) Confirm Administered Dose 200 mg .ROUTE .STK-MED ONE Stop: 09/13/20 13:03 Rocuronium Byers (Rocuronium Byers) Confirm Administered Dose 50 mg .ROUTE .STK-MED ONE Stop: 09/13/20 13:05 Warfarin Sodium (Coumadin) 5 mg PO ONETIME ONE Stop: 09/11/20 16:16 Last Admin: 09/11/20 16:51 Dose: 5 mg Documented by: Warfarin Sodium (Coumadin) 5 mg PO 09/12/20@1430 [facility]ER Stop: 09/12/20 14:31 Last Admin: 09/12/20 16:04 Dose: 5 mg Documented by:
== END 2020-09-13 15:40 | DRG 137 ==
LOC: MW.ED 11:56 → MW.MS 14:13 → MW.ICU 09-12 15:12
PROVIDERS: ADMIT Student in an Organized Health Care Education/Training Program; ATTEND Student in an Organized Health Care Education/Training Program
PROC: 8E0ZXY6 Isolation (ICD-10-PCS; principal; 2020-09-11)
PROC: XW033E5 Introduction of Remdesivir Anti-infective into Peripheral Vein, Percutaneous Approach, New Technology Group 5 (ICD-10-PCS; 2020-09-11)
PROC: XW13325 Transfusion of Convalescent Plasma (Nonautologous) into Peripheral Vein, Percutaneous Approach, New Technology Group 5 (ICD-10-PCS; 2020-09-11)
PROC: XW033F5 Introduction of Other New Technology Therapeutic Substance into Peripheral Vein, Percutaneous Approach, New Technology Group 5 (ICD-10-PCS; 2020-09-11)
DX: U07.1 COVID-19 (principal); J96.01 Acute respiratory failure with hypoxia; M10.9 Gout, unspecified; R91.8 Other nonspecific abnormal finding of lung field; K76.0 Fatty (change of) liver, not elsewhere classified; D68.51 Activated protein C resistance
CPT/HCPCS: 31500; 36415; 36430; 36600; 51702; 71045; 71045-26; 71275; 71275-26; 80053; 82803; 83605; 84484; 85025; 85379; 85610; 86850; 86900; 86901; 93005; 93010; 94002; 94640; 94660; 99285-25; 99291; A9270-GY; J0330; J1956; J2250; J2704; J3010; J7030; J7050; J7620-GY; J8540; P9017; Q9967; U0002

== ENCOUNTER 2023-04-16 16:35 | Emergency (ER) | payer BC, MEDICAID ==
[2023-04-16] MEDS ORDERED: Ketorolac 30 MG/ML SDV IVPUSH ONE (17:30)
[2023-04-16] MEDS ORDERED: Ondansetron 4 MG/2 ML SDV IVPUSH ONE (17:30)
[2023-04-16 17:39] LABS: BASOPHILS PERCENT AUTO 0.1 % (0.0-1.5); EOSINOPHILS ABSOLUTE AUTO 0.1 K/uL (0.0-0.7); HEMATOCRIT 50.3 % (38.0-50.0); HEMOGLOBIN 17.1 g/dL (13.0-17.0); LYMPHOCYTES PERCENT AUTO 9.4 % (16.0-40.0); MEAN CORPUSCULAR HEMOGLOBIN 32.4 pg (27.0-32.0); MEAN CORPUSCULAR VOLUME 95.4 fL (80.0-98.0); MONOCYTES ABSOLUTE AUTO 0.9 K/uL (0.0-0.8); MONOCYTES PERCENT AUTO 8.6 % (0.0-15.0); NEUTROPHILS ABSOLUTE AUTO 8.8 K/uL (1.4-5.7); NEUTROPHILS PERCENT AUTO 80.9 % (48.0-80.0); NRBC ABSOLUTE 0 K/uL; PLATELET COUNT,PLT 154 K/uL (150-400); RED BLOOD CELL COUNT 5.27 M/uL (4.50-5.90); WHITE BLOOD CELL COUNT,WBC 10.86 K/uL (4.0-11.0)
[2023-04-16 17:46] LABS: INR 4.93 (0.86-1.11)
[2023-04-16 17:50] LABS: CALCIUM 9.6 mg/dL (8.5-10.1); CARBON DIOXIDE,CO2 26.4 mmol/L (21.0-32.0); CREATININE 1.4 mg/dL (0.8-1.3); EST CRCL DRUG DOSING (CG) 58.66 mL/min; POTASSIUM,K 5.2 mmol/L (3.5-5.1)
[2023-04-16 17:51] LABS: APPEARANCE,URINE SLT CLOUDY; BILIRUBIN,URINE NEGATIVE (NEGATIVE); COLOR,URINE YELLOW; GLUCOSE,URINE NEGATIVE (NEGATIVE); KETONES,URINE NEGATIVE (NEGATIVE); LEUKOCYTE ESTERASE,URINE NEGATIVE (NEGATIVE); NITRITE,URINE NEGATIVE (NEGATIVE); OCCULT BLOOD,URINE LARGE (NEGATIVE); PH,URINE 5.5 (5.0-8.0); PROTEIN,URINE NEGATIVE (NEGATIVE); UROBILINOGEN,URINE 0.2 EU/dL (<2.0)
[2023-04-16 18:11] LABS: AMORPHOUS SEDIMENT,URINE MODERATE (NEGATIVE); BACTERIA,URINE RARE (NEGATIVE); EPITHELIAL CELLS,URINE FEW (NONE-FEW); MUCUS,URINE MODERATE (NONE-MOD); RBC,URINE 18-26 (0-2/HPF); WBC,URINE 0-2 (0-5/HPF)
[2023-04-16] MEDS ORDERED: Sodium Chloride 0.9% 1,000 ML IV ONE (20:18)
== END 2023-04-16 21:24 | disposition home or self-care (01) ==
LOC: MW.ED 16:35
DX: N13.2 Hydronephrosis with renal and ureteral calculous obstruction (principal); E66.9 Obesity, unspecified; Z68.30 Body mass index [BMI] 30.0-30.9, adult
CPT/HCPCS: 36415; 74176; 80048; 81001; 85025; 85610; 96361; 96374; 96375; 99284; J1885; J2405; J7030

== ENCOUNTER 2023-07-04 07:39 | Day surgery (SDC) | payer MEDICAID ==
[~2023-07-04 07:39] MED LIST changes: -Midazolam 1 MG/ML 2 ML SDV ONE; -Propofol 200 MG/20 ML SDV ONE; -fentaNYL 100 MCG/2 ML SDV ONE
[2023-07-04] MEDS ORDERED: Lidocaine 2% 5 ML SDV ONE (08:49)
[2023-07-04] MEDS ORDERED: Propofol 200 MG/20 ML SDV ONE (08:49)
== END 2023-07-04 10:10 | disposition home or self-care (01) ==
LOC: MW.SDS 07:39
PROVIDERS: ATTEND Surgery
DX: Z12.11 Encounter for screening for malignant neoplasm of colon (principal); D12.3 Benign neoplasm of transverse colon; K63.5 Polyp of colon; K64.8 Other hemorrhoids; E11.9 Type 2 diabetes mellitus without complications; M10.9 Gout, unspecified; Z98.890 Other specified postprocedural states; Z91.013 Allergy to seafood; M79.7 Fibromyalgia; Z86.718 Personal history of other venous thrombosis and embolism; Z79.84 Long term (current) use of oral hypoglycemic drugs; Z79.899 Other long term (current) drug therapy; Z79.01 Long term (current) use of anticoagulants
CPT/HCPCS: 45380; J2704; J7120; 00811; J3490

== ENCOUNTER 2023-10-19 05:14 | Emergency (ER) | payer OTHER, MEDICAID ==
[2023-10-19] MEDS ORDERED: Sodium Chloride 0.9% 2.5 ML Syringe FLUSH PRN (05:15)
[2023-10-19] MEDS ORDERED: Sodium Chloride 0.9% 10 ML Syringe FLUSH PRN (05:15)
[2023-10-19] MEDS ORDERED: Lidocaine 4% 1 each Patch TOP ONE (05:24)
[2023-10-19] MEDS ORDERED: Methocarbamol 750 MG TAB PO STA (05:24)
[2023-10-19] MEDS ORDERED: Ondansetron 4 MG/2 ML SDV IVPUSH ONE (05:28)
[2023-10-19] MEDS ORDERED: Iopamidol 755 MG/ML 500 ML Multipack Bottle IVPUSH STA (05:29)
[2023-10-19 05:45] LABS: BASOPHILS ABSOLUTE AUTO 0.02 K/uL (0.00-0.20); BASOPHILS PERCENT AUTO 0.3 % (0.0-1.0); EOSINOPHILS ABSOLUTE AUTO 0.42 K/uL (0.00-0.45); HEMATOCRIT 47.7 % (42.0-52.0); HEMOGLOBIN 16.2 g/dL (14.0-18.0); LYMPHOCYTES ABSOLUTE AUTO 1.83 K/uL (1.00-4.80); LYMPHOCYTES PERCENT AUTO 30.4 % (24.0-44.0); MEAN CORPUSCULAR VOLUME 94.3 fL (83.0-99.0); MEAN PLATELET VOLUME 10.7 fL (9.4-12.4); MONOCYTES ABSOLUTE AUTO 0.59 K/uL (0.00-0.80); MONOCYTES PERCENT AUTO 9.8 % (0.0-8.0); NEUTROPHILS ABSOLUTE AUTO 3.15 K/uL (1.80-7.70); NEUTROPHILS PERCENT AUTO 52.5 % (41.0-71.0); PLATELET COUNT,PLT 163 K/uL (150-400); RED BLOOD CELL COUNT 5.06 M/uL (4.52-5.90); WHITE BLOOD CELL COUNT,WBC 6.01 K/uL (3.9-11.3)
[2023-10-19 05:56] LABS: INR 2.33 (0.86-1.11); PTT,PARTIAL THROMBOPLSTIN TIME 39.7 SEC (23.9-30.7)
[2023-10-19] MEDS ORDERED: Famotidine 20 MG/2 ML SDV IVPUSH ONE (06:02)
[2023-10-19 06:24] LABS: ALBUMIN 3.6 g/dL (3.4-5.0); BILIRUBIN TOTAL 0.3 mg/dL (0.2-1.0); CALCIUM 9.1 mg/dL (8.5-10.1); CARBON DIOXIDE,CO2 29.3 mmol/L (21.0-32.0); EST CRCL DRUG DOSING (CG) 82.13 mL/min; MAGNESIUM 1.8 mg/dL (1.8-2.4); POTASSIUM,K 3.3 mmol/L (3.5-5.1); PROTEIN TOTAL,TP 7.3 g/dL (6.4-8.2)
[2023-10-19] MEDS ORDERED: Lactated Ringers 1,000 ML IV ONE (06:47)
== END 2023-10-19 08:04 | disposition home or self-care (01) ==
LOC: MW.ED 05:14
DX: M54.2 Cervicalgia (principal); M54.9 Dorsalgia, unspecified; M25.511 Pain in right shoulder; M25.512 Pain in left shoulder; E11.9 Type 2 diabetes mellitus without complications; Z79.01 Long term (current) use of anticoagulants; Z79.84 Long term (current) use of oral hypoglycemic drugs; Z79.899 Other long term (current) drug therapy; Z91.013 Allergy to seafood; V49.49XA Driver injured in collision with other motor vehicles in traffic accident, initial encounter; Y92.410 Unspecified street and highway as the place of occurrence of the external cause
CPT/HCPCS: 36415; 70450; 71260; 72125; 72128; 72131; 74177; 80053; 83690; 83735; 84484; 85025; 85610; 85730; 86850; 86900; 86901; 93005; 96374; 96375; 99285; A9270; J2405; J3490; J7120